=== PATIENT | female | born 1990 | race Caucasian/White ===

== ENCOUNTER 2016-08-07 14:06 | Emergency (ER) | payer OTHER ==
[2016-08-07] MEDS ORDERED: SODIUM CHLORIDE 0.9% 1,000 ML IV STA (14:33)
--- NOTE | 2016-08-07 14:40 | ED ---
Abdominal Pain HPI - General Chief Complaint: Abdominal Pain Stated Complaint: early /poss ectopic -sent by Time Seen by Provider: 08/07/16 14:28 Source: patient, RN notes reviewed Mode of arrival: ambulatory Limitations: no limitations - History of Present Illness Initial Comments: 25-year-old female presents emergency department with a chief complaint of left- sided abdominal pain. Patient states that she is she is willing to 0. Patient states that she's been having this left-sided abdominal pain for the last month or so. Patient states this is like an achy type pain that has been worsening. Patient states she went to his doctor's she was found to be and she was sent here. Patient denies any nausea vomiting. Patient does admit to a history of endometriosis as well as ovarian cysts. Patient states that she was concerned due to the pain and the so she thought that she should be seen. Patient states she has not had any vaginal bleeding with this. Patient denies any recent fever, chills, shortness of breath, chest pain, back pain, nausea vomiting, numbness or tingling, dysuria or hematuria, constipation or diarrhea, headaches or visual changes, or any other current symptoms. - Related Data Home Medications Medication Instructions Recorded Confirmed Ibuprofen [Motrin] 200 - 400 mg PO Q6HR PRN 08/07/16 08/07/16 Allergies Allergy/AdvReac Type Severity Reaction Status Date / Time No Known Allergies Allergy Verified 08/07/16 15:07 Review of Systems ROS Statement: Those systems with pertinent positive or pertinent negative responses have been documented in the HPI. ROS Other: All systems not noted in ROS Statement are negative. Past Medical History Past Medical History: No Reported History Additional Past Medical History / Comment(s): ovarian cysts, endometriosis History of Any Multi-Drug Resistant Organisms: None Reported Additional Past Surgical History / Comment(s): laparascopy Past Psychological History: ADD/ADHD, Anxiety, Bipolar Smoking Status: Current every day smoker Past Alcohol Use History: None Reported Past Drug Use History: None Reported General Exam - General Exam Comments Initial Comments: General: The patient is awake and alert, in no distress, and does not appear acutely ill. Eye: Pupils are equal, round and reactive to light, extra-ocular movements are intact; there is normal conjunctiva bilaterally. No signs of icterus. Ears, nose, mouth and throat: There are moist mucous membranes and no oral lesions. Neck: The neck is supple, there is no tenderness. Cardiovascular: There is a regular rate and rhythm. No murmur, rub or gallop is appreciated. Respiratory: Lungs are clear to auscultation, respirations are non-labored, breath sounds are equal. No wheezes, stridor, rales, or rhonchi. Gastrointestinal: Soft, non-distended, tenderness in left lower quadrant of the abdomen without masses or organomegaly noted. There is no rebound or guarding present. No CVA tenderness. Bowel sounds are unremarkable. Back: There is no tenderness to palpation in the midline. There is no obvious deformity. No rashes noted. Musculoskeletal: Normal ROM, no tenderness, There is no pedal edema. There is no calf tenderness or swelling. Sensation intact. Pulses equal bilaterally 2+. Neurological: CN II-XII intact, There are no obvious motor or sensory deficits. Coordination appears grossly intact. Speech is normal. Skin: Skin is warm and dry and no rashes or lesions are noted. Psychiatric: Cooperative, appropriate mood & affect, normal judgment. Limitations: no limitations Course Vital Signs 08/07/16 14:11 Temperature 98.8 F Pulse Rate 87 Respiratory 20 Rate Blood Pressure 148/65 O2 Sat by Pulse 100 Oximetry Medical Decision Making - Medical Decision Making 25 yo female presents emergency Department chief complaint of abdominal pain. This patient's ultrasound does appear to have a confirmed IUP. This time lab work is essentially to other abnormality. The patient will be discharged home. We discussed follow-up with [employer] and return parameters. Patient states she understood all questions were answered. She will be discharged home. - Lab Data Result diagrams: 08/07/16 15:05 08/07/16 15:05 Lab Results 08/07/16 08/07/16 08/07/16 Range/Units 15:05 15:05 15:05 WBC 14.3 H (3.8-10.6) k/uL RBC 4.55 (3.80-5.40) m/uL Hgb 13.9 (11.4-16.0) gm/dL Hct 40.0 (34.0-46.0) % MCV 87.8 (80.0-100.0) fL MCH 30.5 (25.0-35.0) pg MCHC 34.7 (31.0-37.0) g/dL RDW 12.3 (11.5-15.5) % Plt Count 315 (150-450) k/uL Neutrophils % 64 % Lymphocytes % 27 % Monocytes % 5 % Eosinophils % 1 % Basophils % 1 % Neutrophils # 9.1 H (1.3-7.7) k/uL Lymphocytes # 3.9 (1.0-4.8) k/uL Monocytes # 0.7 (0-1.0) k/uL Eosinophils # 0.2 (0-0.7) k/uL Basophils # 0.1 (0-0.2) k/uL Sodium 140 (137-145) mmol/L Potassium 3.9 (3.5-5.1) mmol/L Chloride 103 (98-107) mmol/L Carbon Dioxide 22 (22-30) mmol/L Anion Gap 15 mmol/L BUN 12 (7-17) mg/dL Creatinine 0.50 L (0.52-1.04) mg/dL Est GFR (MDRD) Af Amer >60 (>60 ml/min/1.73 sqM) Est GFR (MDRD) Non-Af >60 (>60 ml/min/1.73 sqM) Glucose 116 H (74-99) mg/dL Calcium 9.7 (8.4-10.2) mg/dL Total Bilirubin 0.6 (0.2-1.3) mg/dL AST 17 (14-36) U/L ALT 24 (9-52) U/L Alkaline Phosphatase 54 (38-126) U/L Total Protein 8.0 (6.3-8.2) g/dL Albumin 4.8 (3.5-5.0) g/dL Urine Color Urine Appearance (Clear) Urine pH (5.0-8.0) Ur Specific [place] (1.001-1.035) Urine Protein (Negative) Urine Glucose (UA) (Negative) Urine Ketones (Negative) Urine Blood (Negative) Urine Nitrate (Negative) Urine Bilirubin (Negative) Urine Urobilinogen (<2.0) mg/dL Ur Leukocyte Esterase (Negative) Urine WBC (0-5) /hpf Ur Squamous Epith Cells (0-4) /hpf Urine Mucus (None) /hpf Blood Type A Negative Blood Type Recheck No 02/20/17 Range/Units 15:05 WBC (3.8-10.6) k/uL RBC (3.80-5.40) m/uL Hgb (11.4-16.0) gm/dL Hct (34.0-46.0) % MCV (80.0-100.0) fL MCH (25.0-35.0) pg MCHC (31.0-37.0) g/dL RDW (11.5-15.5) % Plt Count (150-450) k/uL Neutrophils % % Lymphocytes % % Monocytes % % Eosinophils % % Basophils % % Neutrophils # (1.3-7.7) k/uL Lymphocytes # (1.0-4.8) k/uL Monocytes # (0-1.0) k/uL Eosinophils # (0-0.7) k/uL Basophils # (0-0.2) k/uL Sodium (137-145) mmol/L Potassium (3.5-5.1) mmol/L Chloride (98-107) mmol/L Carbon Dioxide (22-30) mmol/L Anion Gap mmol/L BUN (7-17) mg/dL Creatinine (0.52-1.04) mg/dL Est GFR (MDRD) Af Amer (>60 ml/min/1.73 sqM) Est GFR (MDRD) Non-Af (>60 ml/min/1.73 sqM) Glucose (74-99) mg/dL Calcium (8.4-10.2) mg/dL Total Bilirubin (0.2-1.3) mg/dL AST (14-36) U/L ALT (9-52) U/L Alkaline Phosphatase (38-126) U/L Total Protein (6.3-8.2) g/dL Albumin (3.5-5.0) g/dL Urine Color Yellow Urine Appearance Cloudy H (Clear) Urine pH 5.5 (5.0-8.0) Ur Specific [place] 1.019 (1.001-1.035) Urine Protein Negative (Negative) Urine Glucose (UA) Negative (Negative) Urine Ketones Negative (Negative) Urine Blood Negative (Negative) Urine Nitrate Negative (Negative) Urine Bilirubin Negative (Negative) Urine Urobilinogen <2.0 (<2.0) mg/dL Ur Leukocyte Esterase Moderate H (Negative) Urine WBC 14 H (0-5) /hpf Ur Squamous Epith Cells 17 H (0-4) /hpf Urine Mucus Rare H (None) /hpf Blood Type Blood Type Recheck - Radiology Data Radiology results: report reviewed, image reviewed Disposition Clinical Impression: Abdominal pain in Disposition: HOME SELF-CARE Condition: Stable Instructions: Abdominal Pain in (ED) Additional Instructions: Please use medication as discussed. Please follow up with family doctor if symptoms have not improved over the next two days. Please return to the emergency room if your symptoms increase or worsen or for any other concerns. Referrals: Hipolito Tran MD [Primary Care Provider] - 1-2 days Time of Disposition: 16:20
[2016-08-07 15:19] LABS: Basophils # (A) 0.1 k/uL (0-0.2); Basophils % (A) 1 %; CH 30.7; CHCM 35.1; Eosinophils # (A) 0.2 k/uL (0-0.7); Eosinophils % (A) 1 %; HDW 2.65; HGB 13.9 gm/dL (11.4-16.0); Luc # (Auto) 0.25; Luc % (Auto) 2; Lymphocytes # (A) 3.9 k/uL (1.0-4.8); Lymphocytes % (A) 27 %; MCH 30.5 pg (25.0-35.0); MCHC 34.7 g/dL (31.0-37.0); MCV 87.8 fL (80.0-100.0); Mean Platelet Volume 7.5; Monocytes # (A) 0.7 k/uL (0-1.0); Monocytes % (A) 5 %; Neutrophils # (A) 9.1 k/uL (1.3-7.7); Neutrophils % (A) 64 %; RBC 4.55 m/uL (3.80-5.40); RDW 12.3 % (11.5-15.5); WBC 14.3 k/uL (3.8-10.6); WBC (Perox) 14.69
[2016-08-07 15:23] LABS: Appearance,Urine Cloudy (Clear); Bilirubin,Urine Negative (Negative); Glucose,Urine (UA) Negative (Negative); Ketones,Urine Negative (Negative); Leukocyte Esterase,Urine Moderate (Negative); Mucus,Urine Rare /hpf; Nitrite,Urine Negative (Negative); PH, Urine 5.5 (5.0-8.0); Particle Count 14213; Protein,Urine Negative (Negative); Specific Gravity,Urine 1.019 (1.001-1.035); Squamous Epithelial Cell,Urine 17 /hpf (0-4); UA Billing (MACRO vs. MICRO) MICRO; Urobilinogen,Urine <2.0 mg/dL (<2.0); WBC,Urine 14 /hpf (0-5)
[2016-08-07 15:42] LABS: ALT 24 U/L (9-52); AST 17 U/L (14-36); Alkaline Phosphatase 54 U/L (38-126); Anion Gap 15 mmol/L; Blood Urea Nitrogen 12 mg/dL (7-17); Calcium 9.7 mg/dL (8.4-10.2); Carbon Dioxide 22 mmol/L (22-30); Chloride 103 mmol/L (98-107); Glucose 116 mg/dL (74-99); Non-African American GFR(MDRD) >60 (>60 ml/min/1.73 sqM); Potassium 3.9 mmol/L (3.5-5.1); Sodium 140 mmol/L (137-145); Total Bilirubin 0.6 mg/dL (0.2-1.3)
--- NOTE | 2016-08-07 16:06 | US ---
EXAMINATION TYPE: US OB <= 14 wk fetus DATE OF EXAM: 08/07/2016 3:41 PM COMPARISON: NONE CLINICAL HISTORY: 25-year-old female with left sided pelvic pain, rule out ectopic. Date of LMP: 06/18/16 Beta HcG (if available): not available EXAM PERFORMED: Transabdominal (TA) FINDINGS: EXAM MEASUREMENTS: GESTATIONAL AGE / DATING Physician Established: not yet established Dates by LMP: ( 7 weeks/1 days) EDC: 03/25/2017 Dates by First Scan: 1st scan today Dates by Current Scan: (7 weeks/1 days) EDC: 03/25/2017 MATERNAL ANATOMY Uterus: 8.8 x 4.6 x 7.2cm Right Ovary: 3.0 x 2.3 x 2.5cm Left Ovary: 3.1 x 1.8 x 1.7cm Post CDS / Adnexa: Within normal limits GESTATION / SURVEY CRL: 1.1cm ( 7 weeks/1 days) Yolk Sac (normal less than 6mm): 4mm Heart Rate: 146 bpm Rhythm: Normal IUP: Viable IUP TECHNOLOGIST IMPRESSION: Viable IUP, dates above. IMPRESSION: 1. Single live intrauterine with gestational age of 7 weeks 1 day by both LMP and crown-rum p length. 2. No adnexal abnormality or pelvic free fluid. 3. Complete survey recommended at 18-20 weeks.
[2016-08-07 16:29] LABS: HCG,Quantitative Serum 59665.4 mIU/mL
[2016-08-07 16:48] VITALS: BP 141/65; PULSE 100; RESP 16; TEMP 97.8
== END 2016-08-07 16:48 | disposition home or self-care (01) ==
LOC: EC 14:06
DX: O99.89 Other specified diseases and conditions complicating pregnancy, childbirth and the puerperium (principal); O99.331 Smoking (tobacco) complicating pregnancy, first trimester; R10.32 Left lower quadrant pain; F17.200 Nicotine dependence, unspecified, uncomplicated; Z3A.01 Less than 8 weeks gestation of pregnancy; Z87.42 Personal history of other diseases of the female genital tract
CPT/HCPCS: 36415; 76801; 80053; 81001; 84702; 85025; 86900; 86901; 87086; 96360; 99284

== ENCOUNTER 2017-02-21 19:09 | Outpatient (CLI) | payer OTHER ==
[2017-02-21 21:08] VITALS: BP 113/69; PULSE 81; RESP 16; TEMP 97.8
--- NOTE | 2017-04-08 21:42 | P.MSEPDOC ---
Presenting Problems - Arrival Data Date of Arrival on Unit: 02/21/17 Time of Arrival on Unit: 19:09 Mode of Transport: Ambulatory - Complaint OB-Reason for Admission/Chief Complaint: Rule Out PROM Comment: pt states had gush of clear odorless fluid 630 pm today Medical History - Information : 1 Para: 0 Term: 0 : 0 Abortions: Spontaneous or Elective: 0 Number of Living Children: 0 - Gestational Age Gestational Age by OSIEL (wks/days): 35 Weeks and 6 Days - History Complications: Hx. 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 continues with out patient rehab getting methadone 80 mg daily. positive for hep c and HPV per pt. sees dr Scott Review of Systems - Review of Systems Constitutional: No problems Breast: No problems ENT: No problems Cardiovascular: No problems Respiratory: No problems Gastrointestinal: No problems Genitourinary: No problems Musculoskeletal: No problems Neurological: No problems Skin: No problems Vital Signs - Temperature Temperature: 97.8 F Temperature Source: Oral - Pulse Right Pulse Rate: 81 Pulse Assessment Method: Automatic Cuff - Respirations Respiratory Rate: 16 - Blood Pressure Right Arm Blood Pressure: 113/69 Blood Pressure Mean: 83 Blood Pressure Source: Automatic Cuff Medical Screen Scoring (Pre) - Cervical Exam Dilation: Exam Deferred Effacement: Exam Deferred - Uterine Contractions Frequency: > 5 minutes apart = 1 - Maternal Vital Signs Maternal Temperature: N/A Maternal Blood Pressure: N/A Signs of Preeclampsia: N/A Maternal Respirations: N/A - Maternal Trauma Maternal Trauma: N/A - Assessment Baseline FHR: 145 Heart Rate - NICHD Category: Category I (Normal) = 0 NST: Reactive Position: N/A Station: N/A - Total Score Total Score (Pre): 1 - Level of Risk Level of Risk: Low (0-5) Physician Notification (Pre) - Physician Notified Physician Notified Date: 02/21/17 Physician Notified Time: 20:23 Physician/Practitioner Notifed:: Dr Dickerson Spoke With: Dr Dickerson New Order Received: Yes (Discharge home if NST reactive after acoustic stim) - Notification Comment Comment: Dr Dickerson notified of negative amnisure. No signs of ROM. pt wore dry underpants here, Hx IV heroin then methadone after 17 weeks.pt on methadone 80mg is seen bi weekly at Dr. Scott's. had reactive nst and ultrasound there today. pt says they always have to "buzz" the baby to get a reactive nst. fhr 145 no decels even with scattered contractions that pt does not feel. Acoustic stim at 2028 produced reactive nst by 2035 with heart rate status reassuring. pt to keep appt 02/[address] scott and appt 02/[address] Disposition - Disposition OB Disposition: Discharge to home, Written follow up instructions reviewed Discharge Date: 02/21/17 Discharge Time: 21:00 I agree with the RN Medical Screening Exam: Yes Risk & Benefit of care provided described in d/c instruction: Yes Diagnosis: FALSE LABOR, UNSPECIFIED
== END 2017-02-21 21:00 | disposition home or self-care (01) ==
LOC: FBPOP 19:09
PROVIDERS: ATTEND Obstetrics & Gynecology
DX: O47.9 False labor, unspecified (principal); Z3A.35 35 weeks gestation of pregnancy
CPT/HCPCS: 59025; 84112; 99213

== ENCOUNTER 2017-10-26 20:52 | Inpatient (IN) | payer OTHER ==
[2017-10-26] MEDS ORDERED: NALOXONE 0.4 MG/ML 1 ML VIAL IV STA ×2 (21:05→23:00)
[2017-10-26] MEDS ORDERED: SODIUM CHLORIDE 0.9% 1,000 ML IV STA (21:05)
--- NOTE | 2017-10-26 21:09 | ED ---
General Adult HPI - General Chief complaint: Overdose Stated complaint: overdose Time Seen by Provider: 10/26/17 20:59 Source: patient, EMS, RN notes reviewed Mode of arrival: EMS Limitations: altered mental status - History of Present Illness Initial comments: 27-year-old female presents with suspected overdose. EMS was called by the patient's family members patient was in the yard acting somewhat erratically. She had fallen and had some left shoulder pain. Patient states she took her methadone which is prescribed her this morning. She also admits to taking a "research chemical off the Internet". She denies alcohol consumption. There was 2 prescription medications Wellbutrin and trazodone that were approximately 50% empty which represents 15 pills of each that were filled 3 or 4 days ago. Patient denies taking these medications today. She states she took the research chemical approximately 3 hours prior to arrival. Patient's only complaint is shoulder pain. She is alert and oriented with some slurred speech at the time of my evaluation. After Narcan patient does admit to taking 4 Klonopin. - Related Data Home Medications Medication Instructions Recorded Confirmed Methadone [Dolophine] 80 mg PO 02/21/17 Allergies Allergy/AdvReac Type Severity Reaction Status Date / Time No Known Allergies Allergy Verified 10/26/17 21:52 Review of Systems ROS Statement: Those systems with pertinent positive or pertinent negative responses have been documented in the HPI. ROS Other: All systems not noted in ROS Statement are negative. Past Medical History Past Medical History: No Reported History Additional Past Medical History / Comment(s): ovarian cysts, endometriosis, iv drug use, prescription drug abuse History of Any Multi-Drug Resistant Organisms: None Reported Additional Past Surgical History / Comment(s): laparascopy Past Psychological History: ADD/ADHD, Anxiety, Bipolar Smoking Status: Current every day smoker Past Alcohol Use History: Occasional Past Drug Use History: IV Drug Use, Prescription Drug Abuse General Exam Limitations: altered mental status General appearance: alert, appears intoxicated Head exam: Present: atraumatic, normocephalic Eye exam: Present: normal appearance, PERRL, EOMI. Absent: nystagmus ENT exam: Present: normal exam Neck exam: Present: normal inspection. Absent: tenderness, meningismus Respiratory exam: Present: normal lung sounds bilaterally. Absent: respiratory distress, wheezes Cardiovascular Exam: Present: regular rate, normal rhythm GI/Abdominal exam: Present: soft. Absent: distended, tenderness Extremities exam: Absent: full ROM (Decreased range of motion left shoulder. Secondary to pain.) Neurological exam: Present: alert. Absent: motor sensory deficit Psychiatric exam: Present: depressed, flat affect Skin exam: Present: warm, intact, diaphoretic Course Vital Signs 10/26/17 10/26/17 10/26/17 21:02 21:09 21:12 Temperature 98.4 F Pulse Rate 90 80 86 Respiratory 16 16 16 Rate Blood Pressure 119/68 120/63 119/66 O2 Sat by Pulse 100 99 99 Oximetry 10/26/17 10/26/17 10/26/17 21:57 22:12 22:42 Temperature Pulse Rate 78 86 88 Respiratory 16 16 16 Rate Blood Pressure 129/87 138/78 144/84 O2 Sat by Pulse 100 99 95 Oximetry 10/26/17 22:57 Temperature Pulse Rate 84 Respiratory 16 Rate Blood Pressure 132/83 O2 Sat by Pulse 99 Oximetry - Reevaluation(s) Reevaluation #1: 10/26/17 23:51 Patient observed in the emergency department, she is protecting her airway, she will wake up with sternal rub. EKG Findings - EKG Comments: EKG Findings:: EKG obtained at 2202: Sinus rhythm with first-degree AV block, prolonged QT at 484, ventricular rate 92, KS interval 216, QRS duration 78. Repeat EKG obtained at 0001 sinus rhythm with first-degree AV block, rate of 100 , KS interval 214, QRS duration 78, QTC 466 Medical Decision Making - Medical Decision Making 27-year-old female presenting with overdose. Patient admits to taking methadone , Klonopin, and some research on the Internet. This substance is unavailable for review. Patient has normal vital signs and is able to give a limited history. Laboratory studies reveal elevated white blood cell count, uncertain of the significance at this time. Laboratory lites are within normal limits. Urine drug test is positive for benzodiazepines and methadone. Tylenol, alcohol, and aspirin levels are negative. Case is discussed with poison control, they recommend observation and repeat EKG. This is obtained. Patient did have some left shoulder pain x-rays obtained, shows a nondisplaced humeral neck fracture. Patient is placed in a sling she will follow-up with orthopedics as an outpatient. Given this trauma and the overdose, head CT is obtained which is negative for any acute intracranial process. Case discussed with Dr. Larose who will accept admission. - Lab Data Result diagrams: 10/26/17 21:13 10/26/17 21:13 Lab Results 10/26/17 10/26/17 10/26/17 Range/Units 21:13 21:13 21:13 WBC 14.6 H (3.8-10.6) k/uL RBC 4.75 (3.80-5.40) m/uL Hgb 14.0 (11.4-16.0) gm/dL Hct 40.0 (34.0-46.0) % MCV 84.2 (80.0-100.0) fL MCH 29.4 (25.0-35.0) pg MCHC 34.9 (31.0-37.0) g/dL RDW 13.1 (11.5-15.5) % Plt Count 214 (150-450) k/uL Neutrophils % 68 % Lymphocytes % 24 % Monocytes % 5 % Eosinophils % 1 % Basophils % 0 % Neutrophils # 10.0 H (1.3-7.7) k/uL Lymphocytes # 3.5 (1.0-4.8) k/uL Monocytes # 0.7 (0-1.0) k/uL Eosinophils # 0.2 (0-0.7) k/uL Basophils # 0.1 (0-0.2) k/uL PT 9.8 (9.0-12.0) sec INR 1.0 (<1.2) Sodium 142 (137-145) mmol/L Potassium 4.0 (3.5-5.1) mmol/L Chloride 104 (98-107) mmol/L Carbon Dioxide 26 (22-30) mmol/L Anion Gap 12 mmol/L BUN 13 (7-17) mg/dL Creatinine 0.60 (0.52-1.04) mg/dL Est GFR (CKD-EPI)AfAm >90 (>60 ml/min/1.73 sqM) Est GFR (CKD-EPI)NonAf >90 (>60 ml/min/1.73 sqM) Glucose 84 (74-99) mg/dL Plasma Lactic Acid Surinder (0.7-2.0) mmol/L Calcium 9.4 (8.4-10.2) mg/dL Phosphorus (2.5-4.5) mg/dL Magnesium (1.6-2.3) mg/dL Total Bilirubin 0.4 (0.2-1.3) mg/dL AST 74 H (14-36) U/L ALT 131 H (9-52) U/L Alkaline Phosphatase 79 (38-126) U/L Creatine Kinase (30-135) U/L Total Protein 7.6 (6.3-8.2) g/dL Albumin 4.5 (3.5-5.0) g/dL Lipase 47 (23-300) U/L Urine Color Urine Appearance (Clear) Urine pH (5.0-8.0) Ur Specific [place] (1.001-1.035) Urine Protein (Negative) Urine Glucose (UA) (Negative) Urine Ketones (Negative) Urine Blood (Negative) Urine Nitrite (Negative) Urine Bilirubin (Negative) Urine Urobilinogen (<2.0) mg/dL Ur Leukocyte Esterase (Negative) Urine HCG, Qual (Not Detectd) Salicylates <1.0 mg/dL Urine Opiates Screen (NotDetected) Ur Oxycodone Screen (NotDetected) Urine Methadone Screen (NotDetected) Ur Propoxyphene Screen (NotDetected) Acetaminophen <10.0 ug/mL Ur Barbiturates Screen (NotDetected) U Tricyclic Antidepress (NotDetected) Ur Phencyclidine Scrn (NotDetected) Ur Amphetamines Screen (NotDetected) U Methamphetamines Scrn (NotDetected) U Benzodiazepines Scrn (NotDetected) Urine Cocaine Screen (NotDetected) U Marijuana (THC) Screen (NotDetected) Serum Alcohol <10 mg/dL 10/26/17 10/26/17 10/26/17 Range/Units 21:13 21:13 21:40 WBC (3.8-10.6) k/uL RBC (3.80-5.40) m/uL Hgb (11.4-16.0) gm/dL Hct (34.0-46.0) % MCV (80.0-100.0) fL MCH (25.0-35.0) pg MCHC (31.0-37.0) g/dL RDW (11.5-15.5) % Plt Count (150-450) k/uL Neutrophils % % Lymphocytes % % Monocytes % % Eosinophils % % Basophils % % Neutrophils # (1.3-7.7) k/uL Lymphocytes # (1.0-4.8) k/uL Monocytes # (0-1.0) k/uL Eosinophils # (0-0.7) k/uL Basophils # (0-0.2) k/uL PT (9.0-12.0) sec INR (<1.2) Sodium (137-145) mmol/L Potassium (3.5-5.1) mmol/L Chloride (98-107) mmol/L Carbon Dioxide (22-30) mmol/L Anion Gap mmol/L BUN (7-17) mg/dL Creatinine (0.52-1.04) mg/dL Est GFR (CKD-EPI)AfAm (>60 ml/min/1.73 sqM) Est GFR (CKD-EPI)NonAf (>60 ml/min/1.73 sqM) Glucose (74-99) mg/dL Plasma Lactic Acid Surinder (0.7-2.0) mmol/L Calcium (8.4-10.2) mg/dL Phosphorus 3.2 (2.5-4.5) mg/dL Magnesium 2.1 (1.6-2.3) mg/dL Total Bilirubin (0.2-1.3) mg/dL AST (14-36) U/L ALT (9-52) U/L Alkaline Phosphatase (38-126) U/L Creatine Kinase 97 (30-135) U/L Total Protein (6.3-8.2) g/dL Albumin (3.5-5.0) g/dL Lipase (23-300) U/L Urine Color Yellow Urine Appearance Clear (Clear) Urine pH 5.5 (5.0-8.0) Ur Specific [place] 1.012 (1.001-1.035) Urine Protein Negative (Negative) Urine Glucose (UA) Negative (Negative) Urine Ketones Negative (Negative) Urine Blood Negative (Negative) Urine Nitrite Negative (Negative) Urine Bilirubin Negative (Negative) Urine Urobilinogen <2.0 (<2.0) mg/dL Ur Leukocyte Esterase Negative (Negative) Urine HCG, Qual (Not Detectd) Salicylates mg/dL Urine Opiates Screen Not Detected (NotDetected) Ur Oxycodone Screen Not Detected (NotDetected) Urine Methadone Screen Detected H (NotDetected) Ur Propoxyphene Screen Not Detected (NotDetected) Acetaminophen ug/mL Ur Barbiturates Screen Not Detected (NotDetected) U Tricyclic Antidepress Not Detected (NotDetected) Ur Phencyclidine Scrn Not Detected (NotDetected) Ur Amphetamines Screen Not Detected (NotDetected) U Methamphetamines Scrn Not Detected (NotDetected) U Benzodiazepines Scrn Detected H (NotDetected) Urine Cocaine Screen Not Detected (NotDetected) U Marijuana (THC) Screen Not Detected (NotDetected) Serum Alcohol mg/dL 10/26/17 10/26/17 Range/Units 21:40 21:45 WBC (3.8-10.6) k/uL RBC (3.80-5.40) m/uL Hgb (11.4-16.0) gm/dL Hct (34.0-46.0) % MCV (80.0-100.0) fL MCH (25.0-35.0) pg MCHC (31.0-37.0) g/dL RDW (11.5-15.5) % Plt Count (150-450) k/uL Neutrophils % % Lymphocytes % % Monocytes % % Eosinophils % % Basophils % % Neutrophils # (1.3-7.7) k/uL Lymphocytes # (1.0-4.8) k/uL Monocytes # (0-1.0) k/uL Eosinophils # (0-0.7) k/uL Basophils # (0-0.2) k/uL PT (9.0-12.0) sec INR (<1.2) Sodium (137-145) mmol/L Potassium (3.5-5.1) mmol/L Chloride (98-107) mmol/L Carbon Dioxide (22-30) mmol/L Anion Gap mmol/L BUN (7-17) mg/dL Creatinine (0.52-1.04) mg/dL Est GFR (CKD-EPI)AfAm (>60 ml/min/1.73 sqM) Est GFR (CKD-EPI)NonAf (>60 ml/min/1.73 sqM) Glucose (74-99) mg/dL Plasma Lactic Acid Surinder 1.2 (0.7-2.0) mmol/L Calcium (8.4-10.2) mg/dL Phosphorus (2.5-4.5) mg/dL Magnesium (1.6-2.3) mg/dL Total Bilirubin (0.2-1.3) mg/dL AST (14-36) U/L ALT (9-52) U/L Alkaline Phosphatase (38-126) U/L Creatine Kinase (30-135) U/L Total Protein (6.3-8.2) g/dL Albumin (3.5-5.0) g/dL Lipase (23-300) U/L Urine Color Urine Appearance (Clear) Urine pH (5.0-8.0) Ur Specific [place] (1.001-1.035) Urine Protein (Negative) Urine Glucose (UA) (Negative) Urine Ketones (Negative) Urine Blood (Negative) Urine Nitrite (Negative) Urine Bilirubin (Negative) Urine Urobilinogen (<2.0) mg/dL Ur Leukocyte Esterase (Negative) Urine HCG, Qual Not Detected (Not Detectd) Salicylates mg/dL Urine Opiates Screen (NotDetected) Ur Oxycodone Screen (NotDetected) Urine Methadone Screen (NotDetected) Ur Propoxyphene Screen (NotDetected) Acetaminophen ug/mL Ur Barbiturates Screen (NotDetected) U Tricyclic Antidepress (NotDetected) Ur Phencyclidine Scrn (NotDetected) Ur Amphetamines Screen (NotDetected) U Methamphetamines Scrn (NotDetected) U Benzodiazepines Scrn (NotDetected) Urine Cocaine Screen (NotDetected) U Marijuana (THC) Screen (NotDetected) Serum Alcohol mg/dL Disposition Clinical Impression: Drug overdose, Suicide attempt by multiple drug overdose, Poisoning by opiate or related narcotic, Fracture, humerus, neck Disposition: ADMITTED IP TO THIS [facility] Condition: Stable Is patient prescribed a controlled substance at d/c from ED?: No Referrals: Hipolito Tran MD [STAFF PHYSICIAN] - 1-2 days Decision to Admit Reason: Admit from EC Decision Date: 10/26/17 Decision Time: 23:56
[2017-10-26 21:21] LABS: Basophils # (A) 0.1 k/uL (0-0.2); Basophils % (A) 0 %; Eosinophils # (A) 0.2 k/uL (0-0.7); Eosinophils % (A) 1 %; Lymphocytes # (A) 3.5 k/uL (1.0-4.8); Lymphocytes % (A) 24 %; MCH 29.4 pg (25.0-35.0); MCHC 34.9 g/dL (31.0-37.0); MCV 84.2 fL (80.0-100.0); Mean Platelet Volume 7.2; Monocytes # (A) 0.7 k/uL (0-1.0); Monocytes % (A) 5 %; Neutrophils % (A) 68 %; Platelet Count 214 k/uL (150-450); RBC 4.75 m/uL (3.80-5.40); RDW 13.1 % (11.5-15.5); WBC 14.6 k/uL (3.8-10.6)
[2017-10-26 21:32] LABS: ALT 131 U/L (9-52); AST 74 U/L (14-36); Acetaminophen <10.0 ug/mL; Albumin 4.5 g/dL (3.5-5.0); Alcohol <10 mg/dL; Alkaline Phosphatase 79 U/L (38-126); Anion Gap 12 mmol/L; Blood Urea Nitrogen 13 mg/dL (7-17); Calcium 9.4 mg/dL (8.4-10.2); Carbon Dioxide 26 mmol/L (22-30); Chloride 104 mmol/L (98-107); Glucose 84 mg/dL (74-99); Lipase 47 U/L (23-300); Salicylate <1.0 mg/dL; Sodium 142 mmol/L (137-145); Total Bilirubin 0.4 mg/dL (0.2-1.3); Total Protein 7.6 g/dL (6.3-8.2)
[2017-10-26 21:34] LABS: Prothrombin Time 9.8 sec (9.0-12.0)
[2017-10-26 21:48] LABS: Appearance,Urine Clear (Clear); Bilirubin,Urine Negative (Negative); Blood,Urine Negative (Negative); Color,Urine Yellow; Glucose,Urine (UA) Negative (Negative); Ketones,Urine Negative (Negative); Leukocyte Esterase,Urine Negative (Negative); Nitrite,Urine Negative (Negative); PH, Urine 5.5 (5.0-8.0); Protein,Urine Negative (Negative); Specific Gravity,Urine 1.012 (1.001-1.035); Urobilinogen,Urine <2.0 mg/dL (<2.0)
[2017-10-26 21:59] LABS: Amphetamine Screen,Urine Not Detected (NotDetected); Barbiturate Screen,Urine Not Detected (NotDetected); Benzodiazepines Screen,Urine Detected (NotDetected); Cocaine Screen,Urine Not Detected (NotDetected); Methadone Screen, Urine Detected (NotDetected); Opiate Screen,Urine Not Detected (NotDetected); Oxycodone Screen, Urine Not Detected (NotDetected); Phencyclidine Screen,Urine Not Detected (NotDetected); Tricyclic Antidepressant,Urine Not Detected (NotDetected); Urn Cannabinoid Scrn Not Detected (NotDetected)
--- NOTE | 2017-10-26 22:37 | XR ---
EXAMINATION TYPE: XR shoulder complete LT DATE OF EXAM: 10/26/2017 COMPARISON: NONE HISTORY: Shoulder pain TECHNIQUE: 3 views FINDINGS: There is a slightly impacted transverse fracture of the humeral neck. There is no dislocati on. Scapula appears intact. IMPRESSION: Humeral neck fracture with slight impaction.
--- NOTE | 2017-10-26 22:44 | CT ---
EXAMINATION TYPE: CT brain carissa drew con DATE OF EXAM: 10/26/2017 COMPARISON: NONE HISTORY: Altered mental status. Alleged overdose. CT DLP: 1380.2 mGycm Automated exposure control for dose reduction was used. TECHNIQUE: CT scan of the head and cervical spine are performed without contrast. FINDINGS: Ventricles and sulci appear normal. There is no mass effect nor midline shift. There is n o sign of intracranial hemorrhage. The calvarium is intact. The cervical vertebra have normal alignment. Posterior elements are intact. Facet joints are intact. The skull base is intact. There is no evidence of a fracture. IMPRESSION: Negative CT scan of the brain. Negative CT scan of the cervical spine. No fracture.
[2017-10-26 22:50] LABS: Phosphorus 3.2 mg/dL (2.5-4.5)
[2017-10-26] MEDS: SODIUM CHLORIDE 0.9% 1,000 ML IV SCH (23:05)
[2017-10-26] MEDS ORDERED: KETOROLAC 30 MG/ML 1 ML VIAL IVP STA (23:24)
[2017-10-26] MEDS ORDERED: NALOXONE 0.4 MG/ML 1 ML VIAL IV PRN (23:47)
[2017-10-27] MEDS ORDERED: NALOXONE 0.4 MG/ML 1 ML VIAL IV PRN (00:55)
[2017-10-27] MEDS ORDERED: ACETAMINOPHEN TAB 325 MG TAB PO PRN (00:55)
--- NOTE | 2017-10-27 01:06 | P.HPIM ---
History of Present Illness H&P Date: 10/26/17 Chief Complaint: decreased responsiveness Patient is a 27-year-old female for past medical history of hepatitis C, HPV, ovarian cysts, endometriosis, and prior IV drug use currently on methadone therapy who was brought in via EMS to the ER due to decreased responsiveness. EMS believe that she had overdosed possible Wellbutrin, trazodone, methadone, and Klonopin. In the ER she underwent an extensive evaluation. She is complaining of left shoulder pain and was found to have a left humeral fracture. Laboratory analysis showed a slightly elevated white blood cell count at 14. Her UDS was positive for methadone and benzos. Her tylenol, salicylate, and alcohol levels were normal. She was given 2 doses of narcan and was arousable to sternal rub. Poison control was contacted who recommended EKG monitoring. Her UA was negative. Her liver enzymes were slightly elevated. She will be placed in a sling and admitted to the selective care unit. Patient seen and examined at bedside. She complains of left shoulder pain. She is difficult to arouse but awakes to sternal rub. She states that she was doing well on her methadone therapy but then her mother has stage IV lung cancer and she was overwhelmed and couldn't handle it any more and combined her methadone with a [place] version of Klonopin to help deal with it. She denies and chest pain, SOB, nausea, or vomiting. She has not been sick at all recently. She is not sure where her 7 month old is currently, but states that she was with her earlier today. After much effort on the nurses process we were able to locate the boyfriend and the baby was with him. Review of Systems Unable to obtain due to patients mentation and frequently falls asleep Past Medical History Additional Past Medical History / Comment(s): ovarian cysts, endometriosis, iv drug use, prescription drug abuse, Hep C, HPV History of Any Multi-Drug Resistant Organisms: None Reported Past Surgical History: No Surgical Hx Reported Additional Past Surgical History / Comment(s): laparascopy Past Psychological History: ADD/ADHD, Anxiety, Bipolar Smoking Status: Current every day smoker Past Alcohol Use History: Occasional Past Drug Use History: IV Drug Use, Prescription Drug Abuse Additional Drug Use History / Comment(s): currently on methadone denies any IVDA currently - Past Family History Mother Additional Family Medical History / Comment(s): Stage IV lung cancer Medications and Allergies Home Medications Medication Instructions Recorded Confirmed Type Methadone [Dolophine] 80 mg PO 02/21/17 History Allergies Allergy/AdvReac Type Severity Reaction Status Date / Time No Known Allergies Allergy Verified 10/26/17 21:52 Physical Exam Osteopathic Statement: *. No significant issues noted on an osteopathic structural exam other than those noted in the History and Physical/Consult. Vitals: Vital Signs Temp Pulse Resp BP Pulse Ox 10/26/17 22:57 84 16 132/83 99 10/26/17 22:42 88 16 144/84 95 10/26/17 22:12 86 16 138/78 99 10/26/17 21:57 78 16 129/87 100 10/26/17 21:12 86 16 119/66 99 10/26/17 21:09 80 16 120/63 99 10/26/17 21:02 98.4 F 90 16 119/68 100 Intake and Output 10/26/17 10/26/17 10/27/17 14:59 22:59 06:59 Other: Weight 99.79 kg General: +toxic appearing, mild distress, appears at stated age, Obese Derm: no unusual rashes/lesions no unusual ecchymoses, warm, dry Head: atraumatic, normocephalic, symmetric Eyes: EOMI, no lid lag, anicteric sclera, pupils equal round reactive to light ENT: Nose and ears atraumatic, no thrush Neck: No thyromegaly, no cervical lymphadenopathy, trachea midline, supple Mouth: no lip lesion, mucus membranes moist Cardiovascular: S1S2 tachy, no murmur, positive posterior tibial pulse bilateral , trace edema left arm, capillary refill less than 2 seconds Lungs: decreased bs bilateral, no rhonchi, no rales , no accessory muscle use Abdominal: soft, nontender to palpation, no guarding, no appreciable organomegaly, normal bowel sounds Ext: no gross muscle atrophy, muscle strength grossly intact all 4 extremities grossly, pain to palpation of left arm, no contractures, Neuro: CN II-XI grossly intact, light touch intact all 4 extremities, finger to nose within normal limits on rihgt , Psych: Alert, oriented, appropriate affect Results CBC & Chem 7: 10/26/17 21:13 10/26/17 21:13 Labs: Abnormal Lab Results - Last 24 Hours (Table) 10/26/17 10/26/17 10/26/17 Range/Units 21:13 21:13 21:40 WBC 14.6 H (3.8-10.6) k/uL Neutrophils # 10.0 H (1.3-7.7) k/uL AST 74 H (14-36) U/L ALT 131 H (9-52) U/L Urine Methadone Screen Detected H (NotDetected) U Benzodiazepines Scrn Detected H (NotDetected) Comments: Left arm x-ray, impacted left humeral neck fracture, EKF reivew by me normal axis, normal ileus Thrombosis Risk Factor Assmnt - DVT/VTE Prophylaxis DVT/VTE Prophylaxis: Mechanical Prophylaxis ordered Assessment and Plan Assessment: Intentional vs unintentional overdose, possible suicide attempt. - neurochecks - 1:1 sitter - no additional methadone - telemetry - psych consult Left humeral fracture - pain control with toradol - sling - consult ortho Transaminitis - likely reactive - has a history of hep C - repeat AM and determine work-up needed. Leukocytosis, likely reactive - UA negative - repeat in AM and CXR if still elevated Tobacco abuse - cessation - nicotine replacement Surrogate decision-maker: Mother CODE STATUS:Full by default DVT prophylaxis: SCDs Discussed with: Patient, ED physician, ED nursing Anticipated discharge: 24-[address]: psych vs home A total of 35 minutes was spent on the care of this complex patient more than 50 % of the time was spent in counseling and care coordination.
[2017-10-27 01:17] VITALS: BMI 36.6
[2017-10-27] MEDS: KETOROLAC 30 MG/ML 1 ML VIAL IVP SCH ×3 (01:21→12:31)
[2017-10-27 06:31] LABS: HCT 34.6 % (34.0-46.0); HGB 12.4 gm/dL (11.4-16.0); MCH 29.7 pg (25.0-35.0); MCHC 35.8 g/dL (31.0-37.0); MCV 82.9 fL (80.0-100.0); Mean Platelet Volume 6.9; Platelet Count 210 k/uL (150-450); RBC 4.17 m/uL (3.80-5.40); RDW 13.1 % (11.5-15.5); WBC 12.7 k/uL (3.8-10.6)
[2017-10-27] MEDS: PANTOPRAZOLE 40 MG TABLET PO SCH (06:33)
[2017-10-27 06:54] LABS: ALT 108 U/L (9-52); AST 55 U/L (14-36); Albumin 3.6 g/dL (3.5-5.0); Alkaline Phosphatase 69 U/L (38-126); Anion Gap 10 mmol/L; Blood Urea Nitrogen 11 mg/dL (7-17); Calcium 8.5 mg/dL (8.4-10.2); Carbon Dioxide 26 mmol/L (22-30); Chloride 106 mmol/L (98-107); Glucose 74 mg/dL (74-99); Sodium 142 mmol/L (137-145); Total Bilirubin 0.7 mg/dL (0.2-1.3); Total Protein 6.3 g/dL (6.3-8.2)
[2017-10-27] MEDS: NICOTINE 21MG/24HR PATCH TRANSDERM SCH (09:10)
[2017-10-27] MEDS: SODIUM CHLORIDE 0.9% 1,000 ML IV SCH ×2 (12:33→23:31)
--- NOTE | 2017-10-27 12:44 | P.CNOR ---
History of Present Illness - [facility] Consult date: 10/27/17 Consult reason: fracture (Left proximal humerus fracture) History of present illness: This is a 27-year-old female who apparently overdosed yesterday with a suicide attempt. She apparently fell at the time. She does not recall the fall. She complains of left upper extremity pain. She is admitted to [facility] for observation. We're consulted for orthopedic evaluation of her left proximal humerus fracture. Past Medical History Past Medical History: No Reported History Additional Past Medical History / Comment(s): ovarian cysts, endometriosis, iv drug use, prescription drug abuse, Hep C, HPV History of Any Multi-Drug Resistant Organisms: None Reported Past Surgical History: No Surgical Hx Reported Additional Past Surgical History / Comment(s): laparascopy Past Psychological History: ADD/ADHD, Anxiety, Bipolar Smoking Status: Current every day smoker Past Alcohol Use History: Occasional Past Drug Use History: IV Drug Use, Prescription Drug Abuse Additional Drug Use History / Comment(s): currently on methadone denies any IVDA currently - Past Family History Mother Additional Family Medical History / Comment(s): Stage IV lung cancer Medications and Allergies Home Medications Medication Instructions Recorded Confirmed Type Methadone [Dolophine] 80 mg PO DAILY 02/21/17 10/27/17 History busPIRone HCl [Buspar] 10 mg PO TID 10/27/17 10/27/17 History traZODone HCL 50 mg PO HS 10/27/17 10/27/17 History Allergies Allergy/AdvReac Type Severity Reaction Status Date / Time No Known Allergies Allergy Verified 10/26/17 21:52 Physical Examination This is a 27-year-old female in no acute distress. She is alert and oriented at this time. Exam of the head neck reveal no obvious deformity. She has full cervical spine motion without difficulty or pain. There is no pain with palpation about the cervical spine or paraspinal musculature. Exam of the upper extremities reveals a sling in place on the left. There is no erythema or ecchymosis. There is [id number] swelling about the shoulder. Neurovascular status to the upper extremity is intact. She has full finger and wrist motion on the left without difficulty. She has full thumb extension against resistance. There is pain with motion to the shoulder. There is pain with palpation about the shoulder. The remainder of her musculoskeletal exam is unremarkable. Results X-rays of the left shoulder reveal a minimally displaced humeral neck fracture in satisfactory position and alignment. - Labs Labs: Abnormal Lab Results - Last 24 Hours (Table) 10/26/17 10/26/17 10/26/17 Range/Units 21:13 21:13 21:40 WBC 14.6 H (3.8-10.6) k/uL Neutrophils # 10.0 H (1.3-7.7) k/uL AST 74 H (14-36) U/L ALT 131 H (9-52) U/L Urine Methadone Screen Detected H (NotDetected) U Benzodiazepines Scrn Detected H (NotDetected) 10/27/17 10/27/17 Range/Units 05:46 05:46 WBC 12.7 H (3.8-10.6) k/uL Neutrophils # (1.3-7.7) k/uL AST 55 H (14-36) U/L ALT 108 H (9-52) U/L Urine Methadone Screen (NotDetected) U Benzodiazepines Scrn (NotDetected) H & H 10/26/17 10/27/17 Range/Units 21:13 05:46 Hgb 14.0 12.4 (11.4-16.0) gm/dL Hct 40.0 34.6 (34.0-46.0) % Coagulation 10/26/17 Range/Units 21:13 INR 1.0 (<1.2) Result Diagrams: 10/27/17 05:46 10/27/17 05:46 Assessment and Plan (1) Drug overdose Current Visit: Yes Status: Acute Code(s): T50.901A - POISONING BY UNSP DRUG/ MEDS/BIOL SUBST, ACCIDENTAL, INIT SNOMED Code(s): 01730145 (2) Fracture, humerus, neck Current Visit: Yes Status: Acute Code(s): S42.213A - UNSP DISP FX OF SURGICAL NECK OF UNSP HUMERUS, INIT SNOMED Code(s): 069928436 (3) Suicide attempt by multiple drug overdose Current Visit: Yes Status: Acute Code(s): T50.902A - POISONING BY UNSP DRUG/ MEDS/BIOL SUBST, SELF-HARM, INIT SNOMED Code(s): 51541772 Plan: The clinical and x-ray findings are discussed with the patient. With regard to the fracture, there is no surgical indication at this time. She is to be treated in a sling. It is recommended that she maintain elevated at least 45 when sleeping for comfort. With her recent history of overdose and history of opioid abuse I will defer pain management to internal medicine. Recommend more Tylenol based products if possible. I have recommended that she quit smoking to improve her bone healing potential. She is to follow-up in our office in one week for re-x-ray and evaluation.
[2017-10-27] MEDS ORDERED: traMADol 50 MG TAB PO SCH (15:30)
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
[2017-10-27] MEDS: traMADol 50 MG TAB PO SCH ×2 (16:38→21:27)
[2017-10-27] MEDS: ACETAMINOPHEN TAB 325 MG TAB PO SCH ×2 (16:40→21:27)
[2017-10-27] MEDS ORDERED: ACETAMINOPHEN TAB 325 MG TAB PO SCH (18:00)
[2017-10-27] MEDS ORDERED: METHADONE 10 MG TAB PO SCH (19:00)
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
[2017-10-27] MEDS ORDERED: lamoTRIgine 25 MG TAB PO SCH (21:00)
[2017-10-28] MEDS: ACETAMINOPHEN TAB 325 MG TAB PO SCH ×2 (03:50→10:04)
[2017-10-28] MEDS: traMADol 50 MG TAB PO SCH ×2 (03:50→10:05)
[2017-10-28] MEDS: PANTOPRAZOLE 40 MG TABLET PO SCH (06:25)
[2017-10-28] MEDS ORDERED: METHADONE 10 MG TAB PO ONE (07:38)
[2017-10-28 08:04] LABS: HCT 37.6 % (34.0-46.0); MCH 29.4 pg (25.0-35.0); MCHC 34.7 g/dL (31.0-37.0); MCV 84.8 fL (80.0-100.0); Mean Platelet Volume 6.9; Platelet Count 228 k/uL (150-450); RBC 4.44 m/uL (3.80-5.40); RDW 13.2 % (11.5-15.5); WBC 12.3 k/uL (3.8-10.6)
[2017-10-28 08:12] LABS: Anion Gap 13 mmol/L; Blood Urea Nitrogen 6 mg/dL (7-17); Calcium 8.9 mg/dL (8.4-10.2); Carbon Dioxide 23 mmol/L (22-30); Chloride 106 mmol/L (98-107); Glucose 111 mg/dL (74-99); Sodium 142 mmol/L (137-145)
[2017-10-28] MEDS: NICOTINE 21MG/24HR PATCH TRANSDERM SCH (08:30)
--- NOTE | 2017-10-28 09:54 | P.PN ---
Subjective Progress Note Date: 10/28/17 Principal diagnosis: Humeral neck fracture left shoulder. Suicide attempt. Drug overdose. This is a 27-year-old female whom we're following regarding her left humeral neck fracture. She is currently in a sling. She has no new complaints or concerns today. She states that her pain is improved. Objective - Vital Signs Vital signs: Vital Signs Temp 98.5 F 10/28/17 08:20 Pulse 99 10/28/17 08:20 Resp 18 10/28/17 08:20 BP 129/80 10/28/17 08:20 Pulse Ox 96 10/28/17 08:20 Intake & Output 10/27/17 10/28/17 10/28/17 18:59 06:59 18:59 Intake Total 675 1200 Balance 675 1200 Weight 91.4 kg Intake: IV 675 1200 Sodium Chloride 0.9% 1, 675 1200 000 ml @ 75 mls/hr IV . [id number] [facility] Rx#:[id number] Other: Voiding Method Toilet Toilet - Exam This is a pleasant 27-year-old female in no acute distress. She is alert and oriented 3. Exam of the upper extremities reveals a sling in place. She has full wrist and finger motion without difficulty or pain. She continues to have pain with palpation about the left shoulder. Neurovascular status to the upper extremity is intact. - Labs CBC & Chem 7: 10/28/17 07:44 10/28/17 07:44 Labs: Abnormal Lab Results - Last 24 Hours (Table) 10/28/17 10/28/17 Range/Units 07:44 07:44 WBC 12.3 H (3.8-10.6) k/uL BUN 6 L (7-17) mg/dL Glucose 111 H (74-99) mg/dL Assessment and Plan (1) Drug overdose Current Visit: Yes Status: Acute Code(s): T50.901A - POISONING BY UNSP DRUG/ MEDS/BIOL SUBST, ACCIDENTAL, INIT SNOMED Code(s): 23157729 (2) Fracture, humerus, neck Current Visit: Yes Status: Acute Code(s): S42.213A - UNSP DISP FX OF SURGICAL NECK OF UNSP HUMERUS, INIT SNOMED Code(s): 762518075 (3) Suicide attempt by multiple drug overdose Current Visit: Yes Status: Acute Code(s): T50.902A - POISONING BY UNSP DRUG/ MEDS/BIOL SUBST, SELF-HARM, INIT SNOMED Code(s): 82038250 Plan: The clinical and x-ray findings are discussed with the patient. With regard to the fracture, there is no surgical indication at this time. She is to be treated in a sling. It is recommended that she maintain elevated at least 45 when sleeping for comfort. With her recent history of overdose and history of opioid abuse I will defer pain management to internal medicine. Recommend more Tylenol based products if possible. I have recommended that she quit smoking to improve her bone healing potential. She is to follow-up in our office in one week for re-x-ray and evaluation.
[2017-10-28 12:38] LABS: ALT 107 U/L (9-52); AST 55 U/L (14-36)
--- NOTE | 2017-10-28 13:36 | P.DS ---
Providers Date of admission: 10/27/17 11:16 Expected date of discharge: 10/28/17 Attending physician: Josefina Larose DO Consults: 10/26/17 23:50 Consult Physician Routine Consulting Provider: Radha Mckay Consult Reason/Comments: Concern for suicide attempt, benzodiazepine and methadone overdose Do you want consulting provider notified?: Yes, Notify in am 10/27/17 01:01 Consult Physician Routine Consulting Provider: Landon Lima Consult Reason/Comments: left humeral fracture Do you want consulting provider notified?: Yes Primary care physician: Stated None - Discharge Diagnosis(es) (1) Drug overdose Current Visit: Yes Status: Acute Onset Date: ~10/26/17 (2) Fracture, humerus, neck Current Visit: Yes Status: Acute Onset Date: ~10/26/17 (3) Poisoning by opiate or related narcotic Current Visit: Yes Status: Acute Onset Date: ~10/26/17 (4) Suicide attempt by multiple drug overdose Current Visit: Yes Status: Acute Onset Date: ~10/26/17 (5) Opioid withdrawal Current Visit: No Status: Acute Hospital Course: Patient was admitted to the hospital for management of her narcotic overdose and she was followed closely while in the hospital. Patient was referred to psychiatry for evaluation of her depression and anxiety with possible suicidal attempt. Patient was also referred to orthopedics who recommended left humeral neck fracture stabilization with sling and pain control per primary care. Patient pain was controlled with Tylenol and Ultram combination and continuation of her methadone. Patient was noted to have elevated liver enzymes at the time of admission which is was noted downtrending along with elevated WBC which was slightly improved. There is no evidence of infection. Patient was seen by the psychiatry and recommended if medically stable and can be discharged and transferred to psych unit for management of her psychiatric condition. Patient is medically stable her pain is better controlled with current management and she will be discharged and transferred to psychiatry inpatient unit for management of her psychotic condition today. Patient Condition at Discharge: Good Plan - Discharge Summary Discharge Rx Participant: No New Discharge Prescriptions: New Acetaminophen Tab [Tylenol] 325 mg PO Q8HR #90 tab lamoTRIgine [LaMICtal] 25 mg PO HS #30 tab Nicotine 21Mg/24Hr Patch [Habitrol] See Taper TRANSDERM DAILY 7 Days #7 patch MDD one patch Pantoprazole [Protonix] 40 mg PO AC-BRKFST #30 tablet. traMADol HCl [Ultram] 50 mg PO Q8H PRN #9 tab PRN Reason: Pain Continue Methadone [Dolophine] 95 mg PO DAILY traZODone HCL 50 mg PO HS busPIRone HCl [Buspar] 10 mg PO TID Discharge Medication List Methadone [Dolophine] 95 mg PO DAILY 02/21/17 [History] busPIRone HCl [Buspar] 10 mg PO TID 10/27/17 [History] traZODone HCL 50 mg PO HS 10/27/17 [History] Acetaminophen Tab [Tylenol] 325 mg PO Q8HR #90 tab 10/28/17 [Rx] Nicotine 21Mg/24Hr Patch [Habitrol] See Taper TRANSDERM DAILY 7 Days #7 patch MDD one patch 10/28/17 [Rx] Pantoprazole [Protonix] 40 mg PO AC-BRKFST #30 tablet. 10/28/17 [Rx] lamoTRIgine [LaMICtal] 25 mg PO HS #30 tab 10/28/17 [Rx] traMADol HCl [Ultram] 50 mg PO Q8H PRN #9 tab 10/28/17 [Rx] Follow up Appointment(s)/Referral(s): Hipolito Tran MD [STAFF PHYSICIAN] - 1-2 days Landon Lima DO [Doctor of Osteopathic Medicine] - 1 Week Activity/Diet/Wound Care/Special Instructions: Maintain sling. Follow up in 1 week for re Xray. Discharge Disposition: TRANSFER TO PSYCH HOSP/UNIT
[2017-10-28 15:28] VITALS: BP 122/66; PULSE 94; RESP 16; TEMP 98.3
[2017-10-28] MEDS ORDERED: traMADol 50 MG TAB PO SCH (16:00)
[2017-10-28] MEDS ORDERED: ACETAMINOPHEN TAB 325 MG TAB PO SCH (16:00)
[2017-10-28] MEDS: SODIUM CHLORIDE 0.9% 1,000 ML IV SCH (17:23)
--- NOTE | 2017-10-28 17:58 | P.PN ---
Progress Note - Text Progress Note Date: 10/28/17 Interval history: Patient is seen again in cross coverage today. She reports that she is feeling depressed today. She describes that someone from [facility] came to talk to her today. She has decided to be admitted to the mental health unit is recommended. She did start the Lamictal last night and seems to be tolerating that fine. Mental status exam: She is alert and cooperative with the interview. Her mood is depressed. She denies any thoughts of suicide. She does not show any evidence of psychosis or agitation. Thought processes are organized. Plan: Patient will be admitted to the inpatient mental health unit to help stabilize. Continue to monitor regarding any thoughts of suicide and monitor her mood. Maintain Lamictal as current.
== END 2017-10-28 18:08 | disposition still patient (30) | DRG 918 ==
LOC: EC 20:52 → 6SEL 23:51 → OBSVTOIN 10-27 11:16
PROVIDERS: ADMIT Internal Medicine; ATTEND Internal Medicine
DX: T40.602A Poisoning by unspecified narcotics, intentional self-harm, initial encounter (principal); S42.212A Unspecified displaced fracture of surgical neck of left humerus, initial encounter for closed fracture; F11.23 Opioid dependence with withdrawal; R74.0 Nonspecific elevation of levels of transaminase and lactic acid dehydrogenase [LDH]; F17.200 Nicotine dependence, unspecified, uncomplicated; B19.20 Unspecified viral hepatitis C without hepatic coma; F31.9 Bipolar disorder, unspecified; F90.9 Attention-deficit hyperactivity disorder, unspecified type; F13.10 Sedative, hypnotic or anxiolytic abuse, uncomplicated; F41.9 Anxiety disorder, unspecified; W19.XXXA Unspecified fall, initial encounter; Z71.6 Tobacco abuse counseling; Z80.1 Family history of malignant neoplasm of trachea, bronchus and lung; Z79.899 Other long term (current) drug therapy
CPT/HCPCS: 36415; 70450; 72125; 80048; 80053; 80306; 80320; 81003; 81025; 82550; 83520; 83605; 83690; 83735; 84100; 84450; 84460; 85025; 85027; 85610; 93005; 96361; 96374; 96375; 96376; 99285

== ENCOUNTER 2017-10-28 17:37 | Inpatient (IN) | payer MEDICAID, OTHER ==
[2017-10-28] MEDS ORDERED: MAG HYDROX/AL HYDROX/SIMETH 30 ML CUP PO PRN (17:38)
[2017-10-28] MEDS ORDERED: MAGNESIUM HYDROXIDE 2,400 MG/10 ML CUP PO PRN (17:38)
[2017-10-28] MEDS: ACETAMINOPHEN TAB 325 MG TAB PO PRN (20:22)
[2017-10-28] MEDS: lamoTRIgine 25 MG TAB PO SCH (20:22)
[2017-10-28] MEDS: traMADol 50 MG TAB PO PRN (20:23)
[2017-10-28 21:06] VITALS: RESP 16; BMI 32.9
[2017-10-28] MEDS ORDERED: NICOTINE 14MG/24HR PATCH TRANSDERM ONE (22:07)
[2017-10-28] MEDS: NICOTINE 14MG/24HR PATCH TRANSDERM SCH (22:08)
[2017-10-29] MEDS: ACETAMINOPHEN TAB 325 MG TAB PO PRN ×5 (01:27→23:24)
[2017-10-29 03:20] LABS: Cholesterol 137 mg/dL (<200); HDL Cholesterol 39 mg/dL (40-60); LDL Cholesterol,Calculated 78 mg/dL (0-99); Triglycerides 98 mg/dL (<150)
[2017-10-29] MEDS: traMADol 50 MG TAB PO PRN (05:16)
[2017-10-29] MEDS: PANTOPRAZOLE 40 MG TABLET PO SCH (08:20)
[2017-10-29] MEDS: NICOTINE 14MG/24HR PATCH TRANSDERM SCH (08:20)
[2017-10-29] MEDS: METHADONE 5 MG TAB PO SCH (10:35)
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
[2017-10-29] MEDS: busPIRone HCl 10 MG TAB PO SCH ×2 (16:10→20:16)
[2017-10-29] MEDS: lamoTRIgine 25 MG TAB PO SCH (20:16)
[2017-10-29] MEDS ORDERED: traZODone HCL 50 MG TAB PO SCH (21:00)
[2017-10-30 04:42] VITALS: BP 135/79; PULSE 88
[2017-10-30] MEDS: ACETAMINOPHEN TAB 325 MG TAB PO PRN ×2 (04:43→11:30)
[2017-10-30 04:47] VITALS: TEMP 99
[2017-10-30] MEDS: NICOTINE 14MG/24HR PATCH TRANSDERM SCH (08:21)
[2017-10-30] MEDS: METHADONE 5 MG TAB PO SCH (08:21)
[2017-10-30] MEDS: busPIRone HCl 10 MG TAB PO SCH (08:22)
[2017-10-30] MEDS: PANTOPRAZOLE 40 MG TABLET PO SCH (08:22)
--- NOTE | 2017-10-30 10:32 | P.DS ---
Providers Date of admission: 10/28/17 18:13 Expected date of discharge: 10/30/17 Attending physician: Haritha Lynch MD Consults: 10/28/17 17:38 Consult Physician Routine Consulting Provider: Misha Mann Consult Reason/Comments: Follow Up H & P Do you want consulting provider notified?: Yes Primary care physician: Stated None Hospital Course: Discharge Diagnosis: Substance-induced mood disorder, opioid use disorder on maintenance therapy, benzodiazepine use disorder, anxiety disorder, unspecified Reason for Admission: Patient is a 27-year-old female who was transferred from the inpatient unit where she had been admitted for an accidental overdose with benzodiazepines and is also on maintenance methadone treatment. Patient states that she was at a friend's house and he offered her Klonopin 1 mg tablets and she recalls taking 2 of them. She states that she took them because she was having a panic attack and states that she doesn't recall anything after that. The patient was at this friend's house with her 7-month-old daughter and apparently fell and fractured her arm as well. She doesn't recall any of this and that it was not a suicide attempt. She states now child protective services is involved and her daughter is living with her father and she has supervised visitation. She states that she has been on methadone 95 mg from [facility] for treatment of her IV heroin use. Patient states that she was begun on methadone in October 2016 when she was with her daughter and using IV heroin. She went to [facility] and was begun on methadone. Patient states that she was also recently at [facility] in August from the of the for use of benzodiazepines and at that time the patient was begun on BuSpar and trazodone. She states that was her third admission to [facility] she had been there in 2014 for heroin abuse but had left after 3 days. Patient states that she has been using heroin IV since 2014 and prior to that she had been using opiates either prescribed or purchased off the street since the age of 14. Patient states that she is also been prescribed benzodiazepines in the past for her anxiety and had begun using Klonopin and Xanax from the street after her . Patient reports that she was prescribed Adderall and Klonopin for years ago from a clinic. She states that she has not been seen by a psychiatrist since her release from [facility] but has been receiving her medications from her primary care physician. Patient states that she is to attend counseling meetings twice a month and 1 group meeting a month at [facility] and continues in their methadone clinic. Patient states that she has anxiety which she describes as having chest pain, shaking, difficulty breathing feeling angry and irritable and avoiding large groups and states that she also has social anxiety feeling that she is being judged or criticized by others. She states that she was given BuSpar 10 mg 3 times a day at [facility] and does feel that this had been beneficial to her. She is unable to tell me what precipitated her anxiety at her friend's house the other day that she took Klonopin 2 mg. Patient states that she always has panic attacks. Patient states that she is also been diagnosed as a bipolar patient and has been treated with Lamictal in the past with good results. Patient describes episodes of depression with some periods of time where she states that she is feeling happy for at least an hour to several days. Patient states that she has never attempted suicide. Patient states that when she is feeling happy her speech is increased and she has more energy but she continues to sleep 5 hours a day. When she is depressed she is feeling unmotivated, tired with no energy. She states that then she is isolative and would rather stay alone. Patient does not endorse any history of auditory or visual hallucinations or other psychotic symptoms. She reports that she has never had a suicide attempt in the past and has never been admitted to an inpatient psychiatric unit before. Mental status on Admission: Appearance/Attitude: Patient is appropriately dressed, makes good eye contact and is to be using a sling on her left arm and is cooperative Behavior: Patient does not exhibit any psychomotor agitation or retardation. Speech/Language: Patient's speech is spontaneous and normal volume and rhythm and she is coherent. Thought Process: Patient is goal-directed there is no evidence of loose association or flight of ideas. Thought Content: Patient denies any auditory or visual hallucinations, no paranoid or delusional ideation was elicited. Patient states that she has no recollection of what occurred after she thought she took 21 mg Klonopin because she was having a panic attack when she was at a friend's house. Patient states that she has been taking methadone 95 mg since October 2016. Patient is upset now that she has lost custody of her daughter because child protective services is involved. She also fractured her left humerus and states she is unaware of when she fell. Patient states that she has been feeling anxious and depressed recently but is unable to state why. Suicidal/Homicidal Ideation: Patient denies any current suicidal or homicidal ideation and states that this was not a suicide attempt she has no prior history of suicide attempts. Sensorium/Cognition: Patient is alert and oriented to person, place, and time and her recent and remote memory are grossly intact Mood/Affect: Patient's mood is slightly anxious and her affect is appropriate to her mood Insight/Judgment: Patient's insight and judgment are fair Hospital Course: Patient was admitted on a voluntary basis as a transfer from the medical floor, she was placed on routine observation in group and activity therapy were ordered. Patient also had a lipid panel done and a medical consultation. Patient was continued on Lamictal 25 mg at bedtime and restarted on trazodone 50 mg at bedtime and BuSpar 10 mg 3 times a day as the patient reported that she had been on these medications in the past with good results in stabilizing her mood as well as controlling her anxiety. Patient reported that she was not having any suicidal ideation and in fact this was not a suicide attempt but the use of Klonopin combined with her methadone. Patient had been abusing benzodiazepines for the last 3 years and had recently gone to [facility] in August of this year for treatment of that. Patient was aware that child protective services is now involved and she is only able to visit her 7-month-old daughter with supervision. Patient was also continued on her methadone 95 mg a day which was confirmed by the [facility] methadone clinic. Patient reported no suicidal ideation, stated that she was feeling stable on her medications, she reported her anxiety was better controlled with the BuSpar being restarted and she stated that she was sleeping and eating well. Patient had no evidence of any psychotic symptoms. Patient felt she was ready for discharge. Patient continued to have a sling on her left arm due to the fracture of her humerus. Patient is to follow up with the orthopedic surgeon 1 week after discharge. Allergies No Known Allergies Allergy (Verified 10/28/17 20:32) Laboratory Last Values Estimated Ave Glu mg/dL 97 10/28/17 07:44 Hemoglobin A1c 5.0 % (4.0-6.0) 10/28/17 07:44 Triglycerides 98 mg/dL (<150) 10/28/17 07:44 Cholesterol 137 mg/dL (<200) 10/28/17 07:44 LDL Cholesterol, Calc 78 mg/dL (0-99) 10/28/17 07:44 HDL Cholesterol 39 mg/dL (40-60) L 10/28/17 07:44 Discharge Mental Status: Appearance/Attitude: Patient is casually dressed, her left arm is in a sling and she makes good eye contact and is cooperative. Behavior: Patient does not exhibit any psychomotor agitation or retardation. Speech/Language: Patient's speech is spontaneous of normal volume and rhythm and she is coherent Thought Process: Patient is goal-directed there is no evidence of loose associations or flight of ideas. Thought Content: Patient denies any auditory or visual hallucinations and no delusions or paranoid ideation or elicited. Patient states that she is sleeping and eating well and states that her anxiety is better controlled with the restart of the BuSpar. Patient states that she is feeling more stable, discussed her bad judgment in using Klonopin. Suicidal/Homicidal Ideation: Patient denied any current suicidal or homicidal ideation Sensorium/Cognition: Patient is alert and oriented to person, place, and time and her recent and remote memory are grossly intact Mood/Affect: Patient's mood is euthymic and her affect is appropriate Insight/Judgment: Patient's insight and judgment are fair Risk Assessment: Patient's risk for self harm is low Discharge Plan: Patient will be discharged and will be living with her mother. Patient will continue on BuSpar 10 mg 3 times a day, trazodone 50 mg at bedtime and Lamictal 25 mg at bedtime until November 10 when she will increase it to 50 mg at bedtime for 2 weeks. Patient will be given prescriptions for these 3 medications. Patient will continue at [facility] methadone clinic and will be given a note stating that she received methadone while she was in the hospital and the dates of her time in hospital. Patient is to follow up with the orthopedic surgeon, in one week. Patient will continue to wear a sling on her left arm. Patient Condition at Discharge: Stable Plan - Discharge Summary Discharge Rx Participant: No New Discharge Prescriptions: New lamoTRIgine [LaMICtal] 25 mg PO HS #40 tab Nicotine 14Mg/24Hr Patch [Habitrol] 1 patch TRANSDERM DAILY #28 patch traZODone HCL [Desyrel] 50 mg PO HS #14 tab Continue Methadone [Dolophine] 95 mg PO DAILY Acetaminophen Tab [Tylenol] 325 mg PO Q8HR #90 tab busPIRone HCl [Buspar] 10 mg PO TID #42 tab Pantoprazole [Protonix] 40 mg PO AC-BRKFST #28 tablet. Discontinued traZODone HCL 50 mg PO HS lamoTRIgine [LaMICtal] 25 mg PO HS #30 tab Nicotine 21Mg/24Hr Patch [Habitrol] See Taper TRANSDERM DAILY 7 Days #7 patch MDD one patch traMADol HCl [Ultram] 50 mg PO Q8H PRN #9 tab PRN Reason: Pain Discharge Medication List Methadone [Dolophine] 95 mg PO DAILY 02/21/17 [History] Acetaminophen Tab [Tylenol] 325 mg PO Q8HR #90 tab 10/28/17 [Rx] Nicotine 14Mg/24Hr Patch [Habitrol] 1 patch TRANSDERM DAILY #28 patch 10/30/17 [ Rx] Pantoprazole [Protonix] 40 mg PO AC-BRKFST #28 tablet. 10/30/17 [Rx] busPIRone HCl [Buspar] 10 mg PO TID #42 tab 10/30/17 [Rx] lamoTRIgine [LaMICtal] 25 mg PO HS #40 tab 10/30/17 [Rx] traZODone HCL [Desyrel] 50 mg PO HS #14 tab 10/30/17 [Rx] Discharge Disposition: HOME SELF-CARE
== END 2017-10-30 12:14 | disposition home or self-care (01) | DRG 897 ==
LOC: 3MHU 18:13
PROVIDERS: ADMIT Psychiatry & Neurology Psychiatry; ATTEND Psychiatry & Neurology Psychiatry
DX: F11.14 Opioid abuse with opioid-induced mood disorder (principal); T42.4X1A Poisoning by benzodiazepines, accidental (unintentional), initial encounter; F41.0 Panic disorder [episodic paroxysmal anxiety]; F31.9 Bipolar disorder, unspecified; Z62.810 Personal history of physical and sexual abuse in childhood; F19.94 Other psychoactive substance use, unspecified with psychoactive substance-induced mood disorder; F13.14 Sedative, hypnotic or anxiolytic abuse with sedative, hypnotic or anxiolytic-induced mood disorder; Z79.899 Other long term (current) drug therapy
CPT/HCPCS: 80061; 83036

== ENCOUNTER → 2018-06-13 | Outpatient (CLI) | payer OTHER ==
--- NOTE | 2018-06-13 10:30 | US ---
EXAMINATION TYPE: US liver DATE OF EXAM: 06/13/2018 COMPARISON: NONE CLINICAL HISTORY: B18.2 Chronic viral hepatitis C. EXAM MEASUREMENTS: Liver Length: 17.0 cm Gallbladder Wall: 0.2 cm CBD: 0.1 cm Right Kidney: 12.1 x 4.4 x 5.0 cm Pancreas: Tail obscured by overlying bowel gas Liver: echogenic area seen left lobe, measuring 1.5 x 1.0 x 1.4cm, mildly heterogeneous, 17.0cm, upp er limits of normal in size Gallbladder: wnl Evidence for sonographic Delcid's sign: no CBD: wnl Right Kidney: Inferior pole obscured by overlying bowel gas, otherwise wnl IMPRESSION: Consider CT of the abdomen for further evaluation of the liver. Probable underlying hepat ic steatosis.
== END ==
LOC: RADUSWWP 09:40
PROVIDERS: ATTEND Internal Medicine Gastroenterology
DX: B18.2 Chronic viral hepatitis C (principal)
CPT/HCPCS: 76705

== ENCOUNTER → 2019-01-24 | Outpatient (CLI) | payer OTHER | END | disposition home or self-care (01) | LOC: LABWHC1 08:34 | PROVIDERS: ATTEND Psychologist Clinical | DX: F11.20 Opioid dependence, uncomplicated (principal) | CPT/HCPCS: 36415 ==

== ENCOUNTER → 2019-12-04 | Outpatient (CLI) | payer OTHER ==
[2019-12-04 10:56] LABS: Basophils % (A) 0 %; Eosinophils # (A) 0.2 k/uL (0-0.7); Eosinophils % (A) 3 %; HCT 40.7 % (34.0-46.0); HGB 13.5 gm/dL (11.4-16.0); Lymphocytes # (A) 3.7 k/uL (1.0-4.8); Lymphocytes % (A) 42 %; MCH 29.8 pg (25.0-35.0); MCHC 33.1 g/dL (31.0-37.0); Mean Platelet Volume 7.2; Monocytes # (A) 0.4 k/uL (0-1.0); Monocytes % (A) 4 %; Neutrophils # (A) 4.3 k/uL (1.3-7.7); Neutrophils % (A) 49 %; Platelet Count 232 k/uL (150-450); RBC 4.52 m/uL (3.80-5.40); RDW 12.8 % (11.5-15.5); WBC 8.8 k/uL (3.8-10.6)
[2019-12-04 19:28] LABS: ALT 93 U/L (8-44); AST 71 U/L (13-35); Albumin/Globulin Ratio 1.68 (1.60-3.17); Alkaline Phosphatase 72 U/L (41-126); Bilirubin, Conjugated <0.20 mg/dL (0.20-0.40); Globulin 2.5 g/dL (1.6-3.3); Total Bilirubin 0.3 mg/dL (0.3-1.2); Total Protein 6.7 g/dL (6.2-8.2)
[2019-12-08 16:08] LABS: HCV Qualitative Result DETECTED (Not detected); HCV Quant Log 5.48 (<1.08)
== END | disposition home or self-care (01) ==
LOC: LABWHC1 09:50
PROVIDERS: ATTEND Physician Assistant
DX: B18.2 Chronic viral hepatitis C (principal)
CPT/HCPCS: 36415; 80076; 82105; 85025; 87522; 87902

== ENCOUNTER → 2019-12-08 | Outpatient (CLI) | payer OTHER ==
--- NOTE | 2019-12-08 12:43 | CT ---
EXAMINATION TYPE: CT abdomen wo/w con DATE OF EXAM: 12/08/2019 COMPARISON: Ultrasound 06/13/2018 INDICATION: Per patient follow up for Hepatitis C. DLP: 2035.6 mGycm, Automated exposure control for dose reduction was used. CONTRAST: 100 mL of Isovue 300. Study performed with Oral Contrast TECHNIQUE: Axial images were obtained from above the diaphragm to the pubic rami in the axial plane a t 5 mm thick sections. Reconstructed images are reviewed on the computer in the coronal plane. FINDINGS: Limited CT sections are obtained the lung bases. The lung bases are clear. CT ABDOMEN: Liver: There is some mild fatty infiltration liver. No discrete masses are identified. Monitoring can be performed as clinically indicated. Spleen: Normal Pancreas: Normal Adrenal glands: The adrenal glands are normal. Gallbladder: Normal Kidneys: No masses are evident. No hydronephrosis is present. No cysts are present. No renal stone s are identified. Delayed images were obtained through the kidneys which remain unremarkable. Aorta: Normal Inferior vena cava: Normal. CT UPPER PELVIS: Loops of bowel within the abdomen and pelvis are normal. There are loops of bowel which are incom pletely distended or lack oral contrast limiting their evaluation. Appendix: Normal as visualized. Urinary bladder: Normal. IMPRESSIONS: 1. Mild fatty infiltration liver. No suspicious masses. Monitoring can be performed as clinically in dicated.
== END | disposition home or self-care (01) ==
LOC: RADCTMAIN 08:49
PROVIDERS: ATTEND Internal Medicine Gastroenterology
DX: K76.0 Fatty (change of) liver, not elsewhere classified (principal)
CPT/HCPCS: 74170; Q9967

== ENCOUNTER 2020-03-28 17:40 | Emergency (ER) | payer OTHER ==
[2020-03-28 17:55] VITALS: BP 120/69; PULSE 100; RESP 18; TEMP 98.3
--- NOTE | 2020-03-28 18:32 | ED ---
ENT HPI - General Chief complaint: ENT Stated complaint: infection in mouth Time Seen by Provider: 03/28/20 17:58 Source: patient Mode of arrival: ambulatory Limitations: no limitations - History of Present Illness Initial comments: 29yo female presenting to the ER today for cc of white stuff on tongue. IVDU. Denies known history of HIV. Hx hepatitis B. States it is making throat sore. States she can scrape off lesions. Denies night sweats,weight loss or additional complaints. Patient appears well nontoxic. Patient gave verbal consent for HIV testing.Patient case discussed with Dr. Pedroza who is agreeable to discharge with oral susp of nystatin and pcp f/u. Patient discharged appearing well. - Related Data Home Medications Medication Instructions Recorded Confirmed Methadone [Dolophine] 95 mg PO DAILY 02/21/17 10/28/17 Previous Rx's Medication Instructions Recorded Acetaminophen Tab [Tylenol] 325 mg PO Q8HR #90 tab 10/28/17 Nicotine 14Mg/24Hr Patch [Habitrol] 1 patch TRANSDERM DAILY #28 patch 10/30/17 Pantoprazole [Protonix] 40 mg PO AC-BRKFST #28 tablet. 10/30/17 busPIRone HCl [Buspar] 10 mg PO TID #42 tab 10/30/17 lamoTRIgine [LaMICtal] 25 mg PO HS #40 tab 10/30/17 traZODone HCL [Desyrel] 50 mg PO HS #14 tab 10/30/17 Nystatin 100,000 Unit/ml Susp 5 ml PO QID 14 Days #300 ml 03/28/20 [Mycostatin Oral Susp] Allergies Allergy/AdvReac Type Severity Reaction Status Date / Time No Known Allergies Allergy Verified 03/28/20 17:52 Review of Systems ROS Statement: Those systems with pertinent positive or pertinent negative responses have been documented in the HPI. ROS Other: All systems not noted in ROS Statement are negative. Past Medical History Past Medical History: No Reported History Additional Past Medical History / Comment(s): ovarian cysts, endometriosis, iv drug use, prescription drug abuse, Hep C, HPV History of Any Multi-Drug Resistant Organisms: None Reported Past Surgical History: No Surgical Hx Reported Additional Past Surgical History / Comment(s): laparascopy for endometriosis, Past Psychological History: ADD/ADHD, Anxiety, Bipolar Smoking Status: Current every day smoker Past Alcohol Use History: Occasional Past Drug Use History: IV Drug Use, Prescription Drug Abuse - Past Family History Mother Additional Family Medical History / Comment(s): Stage IV lung cancer General Exam Limitations: no limitations Course Vital Signs 03/28/20 17:50 Temperature 98.3 F Pulse Rate 100 Respiratory 18 Rate Blood Pressure 120/69 O2 Sat by Pulse 98 Oximetry Disposition Clinical Impression: Oral thrush Disposition: HOME SELF-CARE Condition: Good Instructions (If sedation given, give patient instructions): Oral Candidiasis (ED) Additional Instructions: Please use medication as discussed. Please follow-up with family doctor in the next 2 days. Please return to emergency room if the symptoms increase or worsen or for any other concerns. Prescriptions: Nystatin 100,000 Unit/ml Susp [Mycostatin Oral Susp] 5 ml PO QID 14 Days #300 ml Is patient prescribed a controlled substance at d/c from ED?: No Referrals: Klaudia Aragon MD [Primary Care Provider] - 1-2 days Time of Disposition: 18:32
[2020-03-29 09:24] LABS: HIV 2 AB Non-Reactive (Non-Reactive); HIV AB P24 Non-Reactive (Non-Reactive); HIV P24 AG Non-Reactive (Non-Reactive)
== END 2020-03-28 18:41 | disposition home or self-care (01) ==
LOC: EC 17:40
DX: B37.0 Candidal stomatitis (principal); F17.200 Nicotine dependence, unspecified, uncomplicated; Z79.899 Other long term (current) drug therapy; Z86.19 Personal history of other infectious and parasitic diseases
CPT/HCPCS: 36415; 87390; 99283

== ENCOUNTER 2022-04-15 20:00 | Emergency (ER) | payer OTHER ==
[2022-04-15 20:07] VITALS: BP 181/90; PULSE 100; RESP 20; TEMP 98.2
[2022-04-15] MEDS ORDERED: HYDROcodone/APAP 5-325MG 1 EACH TAB PO STA (20:56)
[2022-04-15] MEDS ORDERED: LIDOCAINE 1% INJ 10MG/ML (30 ML VIAL-PF) SQ ONE (20:56)
[2022-04-15] MEDS ORDERED: SULFAMETHOX-TMP 800-160MG 1 EACH TAB PO STA (21:32)
--- NOTE | 2022-04-15 21:38 | ED ---
General Adult HPI - General Chief complaint: Skin/Abscess/Foreign Body Stated complaint: boil under lt arm Time Seen by Provider: 04/15/22 20:14 Source: patient, RN notes reviewed Mode of arrival: ambulatory Limitations: no limitations - History of Present Illness Initial comments: 31-year-old female presents to the emergency Department with complaints of left axillary abscess, onset 4 days prior to arrival. States redness and swelling have worsened since. Fluctuant area with no active drainage. Patient reports significant discomfort associated with abscess. Did not take anything for pain prior to arrival. No history of MRSA or prior abscesses. Denies fever, chills, fatigue, nausea, or vomiting. - Related Data Home Medications Medication Instructions Recorded Confirmed Methadone [Dolophine] 95 mg PO DAILY 02/21/17 10/28/17 Previous Rx's Medication Instructions Recorded Acetaminophen Tab [Tylenol] 325 mg PO Q8HR #90 tab 10/28/17 Nicotine 14Mg/24Hr Patch [Habitrol] 1 patch TRANSDERM DAILY #28 patch 10/30/17 Pantoprazole [Protonix] 40 mg PO AC-BRKFSIdalmis #28 tablet.dr 10/30/17 busPIRone HCl [Buspar] 10 mg PO TID #42 tab 10/30/17 lamoTRIgine [LaMICtal] 25 mg PO HS #40 tab 10/30/17 traZODone HCL [Desyrel] 50 mg PO HS #14 tab 10/30/17 Nystatin 100,000 Unit/ml Susp 5 ml PO QID 14 Days #300 ml 03/28/20 [Mycostatin Oral Susp] Sulfamethox-Tmp 800-160Mg [Bactrim 1 each PO Q12HR 5 Days #10 tab 04/15/22 Ds] Allergies Allergy/AdvReac Type Severity Reaction Status Date / Time No Known Allergies Allergy Verified 04/15/22 20:06 Review of Systems ROS Statement: Those systems with pertinent positive or pertinent negative responses have been documented in the HPI. ROS Other: All systems not noted in ROS Statement are negative. Past Medical History Past Medical History: No Reported History Additional Past Medical History / Comment(s): ovarian cysts, endometriosis, iv drug use, prescription drug abuse, Hep C, HPV History of Any Multi-Drug Resistant Organisms: None Reported Past Surgical History: No Surgical Hx Reported Additional Past Surgical History / Comment(s): laparascopy for endometriosis, Past Psychological History: ADD/ADHD, Anxiety, Bipolar Smoking Status: Current every day smoker Past Alcohol Use History: Occasional Past Drug Use History: IV Drug Use, Prescription Drug Abuse - Past Family History Mother Additional Family Medical History / Comment(s): Stage IV lung cancer General Exam Limitations: no limitations General appearance: alert, in distress (Well-developed, well-nourished female in moderate distress due to pain.) Respiratory exam: Present: normal lung sounds bilaterally. Absent: respiratory distress, wheezes, rales, rhonchi, stridor Cardiovascular Exam: Present: regular rate, normal rhythm, normal heart sounds. Absent: systolic murmur, diastolic murmur, rubs, gallop, clicks Neurological exam: Present: alert, oriented X3, CN II-XII intact, normal gait Psychiatric exam: Present: normal affect, normal mood Skin exam: Present: warm, dry, intact, normal color Expanded Type of lesion: Present: abscess (3 cm abscess left axilla. Fluctuant area with surrounding erythema. No active drainage.) Course Vital Signs 04/15/22 20:03 Temperature 98.2 F Pulse Rate 100 Respiratory 20 Rate Blood Pressure 181/90 O2 Sat by Pulse 100 Oximetry Procedures - Incision & Drainage Consent Obtained: verbal consent Indication: Fluctuant Abscess, left axilla Site: upper extremity (Left) Size (cm): 2 Anesthetic Used: lidocaine 1% Amount (mLs): 3 I&D Cleaning Method: Iodine Sterile Field Used?: Yes Scalpel Used: #11 Needle Aspiration Performed?: Yes Irrigation Performed?: Yes I&D Drainage Obtained: Pus, Blood Packing: Plain Culture Obtained?: No Patient Tolerated Procedure: well, no complications, other (Procedure explained and consent obtained. Site cleansed and anesthetized. Abscess incised with 11 blade. Significant amount of pus and bloody drainage. Abscess irrigated and packed. Dressing applied. Patient instructed on wound care and appropriate follow-up.) Medical Decision Making - Medical Decision Making 31-year-old female with a past medical history of IV drug abuse presents to the emergency department for evaluation of left axillary abscess. Upon exam, patient appears moderately uncomfortable but in no acute distress. Vital signs are stable. Incision and drainage of abscess was performed with significant amount of pus and bloody drainage. Given [place] for pain with some improvement. She is started on Bactrim and a prescription was sent to the pharmacy. She has instructed on wound care and encouraged to follow up with PCP for recheck in 48- 72 hours. Return parameters were discussed in detail. Patient verbalizes understanding and agrees with this plan. Attending: Dian. Disposition Clinical Impression: Axillary abscess Disposition: HOME SELF-CARE Condition: Stable Instructions (If sedation given, give patient instructions): Abscess Incision and Drainage (DC) Additional Instructions: Take antibiotic as directed. Apply warm compress to facilitate drainage. Keep area clean and dry. Change dressing twice daily. Remove packing in 48 hours. Gently cleanse with mild soap and water after packing is removed. May take Tylenol or Motrin if needed for discomfort. Follow-up with your PCP on Sunday for a recheck. Return to the emergency department if you develop a fever, worsening redness, or intolerable pain. Prescriptions: Sulfamethox-Tmp 800-160Mg [Bactrim Ds] 1 each PO Q12HR 5 Days #10 tab Is patient prescribed a controlled substance at d/c from ED?: No Referrals: Arik Bliss MD [Primary Care Provider] - 1-2 days Time of Disposition: 21:37
== END 2022-04-15 21:44 | disposition home or self-care (01) ==
LOC: EC 20:00
DX: L02.412 Cutaneous abscess of left axilla (principal); F90.9 Attention-deficit hyperactivity disorder, unspecified type; F17.200 Nicotine dependence, unspecified, uncomplicated
CPT/HCPCS: 99283; 10060; J2001

== ENCOUNTER 2023-05-24 18:55 | Emergency (ER) | payer OTHER ==
--- NOTE | 2023-05-24 19:05 | ED ---
General Adult HPI <Hakan Cook - Last Filed: 05/24/23 19:05> - General Source: RN notes reviewed, old records reviewed Limitations: no limitations - History of Present Illness -: days(s) Location: left, upper extremity Radiation: non-radiation Severity scale (1-10): 10 Quality: burning, stabbing, aching, sharp Consistency: constant Improves with: none Worsens with: cold therapy Associated Symptoms: denies other symptoms <Gavin Biggs - Last Filed: 05/30/23 22:38> - General Stated complaint: abscess left arm Time Seen by Provider: 05/24/23 19:05 - History of Present Illness Initial comments: 32-year-old IV drug user presenting with abscess to left arm. States this is on ongoing for the last 2 days. (Hakan Cook) This is a 32-year-old female to the ER for evaluation of left elbow pain with significant abscess noted. Patient presents today (Gavin Biggs) - Related Data Home Medications Medication Instructions Recorded Confirmed Methadone [Dolophine] 95 mg PO DAILY 02/21/17 10/28/17 Previous Rx's Medication Instructions Recorded Acetaminophen Tab [Tylenol] 325 mg PO Q8HR #90 tab 10/28/17 Nicotine 14Mg/24Hr Patch [Habitrol] 1 patch TRANSDERM DAILY #28 patch 10/30/17 Pantoprazole [Protonix] 40 mg PO AC-BRKFST #28 tablet. 10/30/17 busPIRone HCl [Buspar] 10 mg PO TID #42 tab 10/30/17 lamoTRIgine [LaMICtal] 25 mg PO HS #40 tab 10/30/17 traZODone HCL [Desyrel] 50 mg PO HS #14 tab 10/30/17 Nystatin 100,000 Unit/ml Susp 5 ml PO QID 14 Days #300 ml 03/28/20 [Mycostatin Oral Susp] Sulfamethox-Tmp 800-160Mg [Bactrim 1 each PO Q12HR 5 Days #10 tab 04/15/22 Ds] Cephalexin [Keflex] 500 mg PO Q6HR #40 cap 05/24/23 Sulfamethox-Tmp 800-160Mg [Bactrim 2 tab PO BID #40 tab 05/25/23 DS 800-160 mg] Allergies Allergy/AdvReac Type Severity Reaction Status Date / Time No Known Allergies Allergy Verified 04/15/22 20:06 Review of Systems ROS Other: All systems not noted in ROS Statement are negative. <TianadesiMar westHakan - Last Filed: 05/24/23 19:05> ROS Other: All systems not noted in ROS Statement are negative. <NilamcarlieGavin Ling - Last Filed: 05/30/23 22:38> ROS Statement: Those systems with pertinent positive or pertinent negative responses have been documented in the HPI. Past Medical History Past Medical History: No Reported History Additional Past Medical History / Comment(s): ovarian cysts, endometriosis, iv drug use, prescription drug abuse, Hep C, HPV History of Any Multi-Drug Resistant Organisms: None Reported Past Surgical History: No Surgical Hx Reported Additional Past Surgical History / Comment(s): laparascopy for endometriosis, Past Psychological History: ADD/ADHD, Anxiety, Bipolar Smoking Status: Current every day smoker Past Alcohol Use History: Occasional Past Drug Use History: IV Drug Use, Prescription Drug Abuse - Past Family History Mother Additional Family Medical History / Comment(s): Stage IV lung cancer <TianadesiHakan west - Last Filed: 05/24/23 19:05> General Exam General appearance: alert Neck exam: Present: normal inspection Extremities exam: Present: other (Abscess to left forearm) Neurological exam: Present: alert Skin exam: Present: warm <Hakan Cook - Last Filed: 05/24/23 19:05> General appearance: alert, in no apparent distress, anxious Head exam: Present: atraumatic, normocephalic, normal inspection Eye exam: Present: normal appearance, PERRL, EOMI. Absent: scleral icterus, conjunctival injection, periorbital swelling ENT exam: Present: normal exam, mucous membranes moist Neck exam: Present: normal inspection. Absent: tenderness, meningismus, lymphadenopathy Respiratory exam: Present: normal lung sounds bilaterally. Absent: respiratory distress, wheezes, rales, rhonchi, stridor Cardiovascular Exam: Present: normal rhythm, tachycardia, normal heart sounds. Absent: systolic murmur, diastolic murmur, rubs, gallop, clicks GI/Abdominal exam: Present: soft, normal bowel sounds. Absent: distended, tenderness, guarding, rebound, rigid Extremities exam: Present: normal inspection, full ROM, normal capillary refill. Absent: tenderness, pedal edema, joint swelling, calf tenderness Back exam: Present: normal inspection Neurological exam: Present: alert, oriented X3, CN II-XII intact Psychiatric exam: Present: normal affect, normal mood Skin exam: Present: warm, dry, intact, normal color. Absent: rash <Gavin Biggs - Last Filed: 05/30/23 22:38> Course <Gavin Biggs - Last Filed: 05/30/23 22:38> Vital Signs 05/24/23 05/25/23 19:04 00:26 Temperature 99.3 F 98.4 F Pulse Rate 116 H 97 Respiratory 20 18 Rate Blood Pressure 120/75 118/68 O2 Sat by Pulse 99 99 Oximetry - Reevaluation(s) Reevaluation #1: 05/25/23 00:05 Record is reviewed (Gavin Biggs) Reevaluation #2: 05/25/23 00:05 Symptoms are improved (Gavin Biggs) Reevaluation #3: 05/25/23 00:05 patient symptoms are improved (Gavin Biggs) Reevaluation #4: 05/25/23 00:05 Was pt. sent in by a medical professional or institution (RENÉE Kim, PROCEDURES ANALYST, urgent care, hospital, or custodial...) When possible be specific @ -no Did you speak to anyone other than the patient for history (EMS, parent, family, police, friend...)? What history was obtained from this source @ -no Did you review nursing and triage notes (agree or disagree)? Why? @ -agree Are old charts reviewed (outside hosp., previous admission, EMS record, old EKG, old radiological studies, urgent care reports/EKG's, custodial records)? Report findings @ -yes Differential Diagnosis (chest pain, altered mental status, abdominal pain women, abdominal pain men, vaginal bleeding, weakness, fever, dyspnea, syncope, headache, dizziness, GI bleed, back pain, seizure, CVA, palpatations, mental health, musculoskeletal)? @ -prior EKG interpreted by me (3pts min.). @ -yes X-rays interpreted by me (1pt min.). @ -yes negative for acute disease CT interpreted by me (1pt min.). @ -no U/S interpreted by me (1pt. min.). @ -no What testing was considered but not performed or refused? (CT, X-rays, U/S, labs)? Why? @ -none What meds were considered but not given or refused? Why? @ -none Did you discuss the management of the patient with other professionals (professionals i.e. , PA, PROCEDURES ANALYST, lab, RT, psych nurse, social science research assistant, registered occupational therapist, teacher, patient transport officer, rn case management)? Give summary @ -no Was smoking cessation discussed for >3mins.? @ -no Was critical care preformed (if so, how long)? @ -no Were there social determinants of health that impacted care today? How? (Homelessness, low income, unemployed, alcoholism, drug addiction, transportation, low edu. Level, literacy, decrease access to med. care, care home, rehab)? @ -none Was there de-escalation of care discussed even if they declined (Discuss DNR or withdrawal of care, Hospice)? DNR status @ -no What co-morbidities impacted this encounter? (DM, HTN, Smoking, COPD, CAD, Cancer, CVA, ARF, Chemo, Hep., AIDS, mental health diagnosis, sleep apnea, morbid obesity)? @ -none Was patient admitted / discharged? Hospital course, mention meds given and route, prescriptions, significant lab abnormalities, going to OR and other pertinent info. @ - 32 to the ER today for evaluation, patient presents today for evaluation of left arm abscess history of IV drug abuse and recent IV injection and that upper arm. Patient does suffer from hepatitis C, patient is unable to arm to have any significant drainage or she has tried has this is not her first abscess. Patient's abscesses incised and drained here in the ER patient can be discharged home discharged Undiagnosed new problem with uncertain prognosis? @ -no Drug Therapy requiring intensive monitoring for toxicity (Heparin, Nitro, Insulin, Cardizem)? @ -no Were any procedures done? @ -no Diagnosis/symptom? @ -Forearm abscess Acute, or Chronic, or Acute on Chronic? @ -Acute Uncomplicated (without systemic symptoms) or Complicated (systemic symptoms)? @ -Complicated Side effects of treatment? @ -no Exacerbation, Progression, or Severe Exacerbation? @ -exacerbation Poses a threat to life or bodily function? How? (Chest pain, [place], [place], pneumonia, PE, COPD, DKA, ARF, appy, cholecystitis, CVA, Diverticulitis, Homicidal, Suicidal, threat to staff... and all critical care pts) @ -yes significant abscess and infection (Gavin Biggs) EKG Findings - EKG Comments: EKG Findings:: She is sinus tachycardia 109 [place] 161 QRS 80 QTC 393 - EKG Results: EKG: interpreted by ERMD <Gavin Biggs - Last Filed: 05/30/23 22:38> Procedures - Incision & Drainage Consent Obtained: verbal consent Site: upper extremity Anesthetic Used: lidocaine 1%, with epi I&D Cleaning Method: Betadine Sterile Field Used?: Yes Scalpel Used: #11 Ultrasound used: No Needle Aspiration Performed?: No Irrigation Performed?: Yes I&D Drainage Obtained: Pus Loculation Noted: probing needed to break Insertion of drain: Yes Culture Obtained?: No Complications: pain Patient Tolerated Procedure: well <Gavin Biggs - Last Filed: 05/30/23 22:38> Medical Decision Making <Hakan Cook - Last Filed: 05/24/23 19:05> - Radiology Data Radiology results: report reviewed (X-rays negative for acute disease), image reviewed <Gavin Biggs - Last Filed: 05/30/23 22:38> - Medical Decision Making Quicknote portion performed. Signed Hakan Cook PA-C (Hakan Cook) 32 to the ER today for evaluation, patient presents today for evaluation of left arm abscess history of IV drug abuse and recent IV injection and that upper arm. Patient does suffer from hepatitis C, patient is unable to arm to have any significant drainage or she has tried has this is not her first abscess. Patient's abscesses incised and drained here in the ER patient can be discharged home (Gavin Biggs) Disposition <Hakan Cook - Last Filed: 05/24/23 19:05> Is patient prescribed a controlled substance at d/c from ED?: No Time of Disposition: 00:05 <Gavin Biggs - Last Filed: 05/30/23 22:38> Clinical Impression: Abscess of left forearm, Left arm cellulitis Disposition: ADMITTED IP TO THIS HOSP Condition: Fair Prescriptions: Sulfamethox-Tmp 800-160Mg [Bactrim DS 800-160 mg] 2 tab PO BID #40 tab Cephalexin [Keflex] 500 mg PO Q6HR #40 cap Referrals: Arik Bliss MD [Primary Care Provider] - 1-2 days
--- NOTE | 2023-05-24 19:39 | XR ---
EXAMINATION: XR chest 2V: 05/24/2023 7:24 PM CLINICAL INDICATION: Chest Pain TECHNIQUE: Departmental protocol COMPARISON: None FINDINGS: The lungs are clear. The pleural spaces are negative. The cardiac silhouette is not enlarged. The remainder of the mediastinal silhouette is unremarkable. The skeletal structures and soft tissues are negative for acute findings. IMPRESSION: No acute radiographic process.
[2023-05-24] MEDS ORDERED: LIDOCAINE 1%-EPI 1:100,000 50 ML VIAL SQ STA (23:21)
[2023-05-24] MEDS ORDERED: HYDROmorphone 1 MG/ML 1 ML SYRINGE IM STA ×2 (23:26→23:30)
[2023-05-24] MEDS ORDERED: SULFAMETHOX-TMP 800-160MG 1 EACH TAB PO STA (23:54)
[2023-05-24] MEDS ORDERED: CEPHALEXIN 500 MG CAP PO STA (23:54)
[2023-05-24] MEDS ORDERED: SULFAMETH-TMP DS STARTER PACK 2 TAB BTL PO STA (23:58)
[2023-05-24] MEDS ORDERED: CEPHALEXIN 500MG STARTER PACK 4 CAP BTL PO STA (23:58)
[2023-05-25 00:56] VITALS: BP 118/68; PULSE 97; RESP 18; TEMP 98.4
== END 2023-05-25 00:27 | disposition other institution (70) ==
LOC: EC 18:55
DX: L02.414 Cutaneous abscess of left upper limb (principal); R00.0 Tachycardia, unspecified; F17.200 Nicotine dependence, unspecified, uncomplicated; Z86.59 Personal history of other mental and behavioral disorders
CPT/HCPCS: 93005; 71046; 99285; 96372 ×2; 10060; J1170 ×2

== ENCOUNTER 2023-07-07 16:30 | Emergency (ER) | payer OTHER ==
[2023-07-07] MEDS ORDERED: KETOROLAC 15 MG/ML 1 ML VIAL IVP STA (16:52)
[2023-07-07 17:35] LABS: Basophils # (A) 0.1 k/uL (0-0.2); Basophils % (A) 1 %; Eosinophils # (A) 0.1 k/uL (0-0.7); Eosinophils % (A) 1 %; HCT 37.7 % (34.0-46.0); HGB 12.9 gm/dL (11.4-16.0); Lymphocytes # (A) 3.1 k/uL (1.0-4.8); Lymphocytes % (A) 24 %; MCH 29.4 pg (25.0-35.0); MCHC 34.3 g/dL (31.0-37.0); MCV 85.8 fL (80.0-100.0); Mean Platelet Volume 7.1; Monocytes # (A) 0.5 k/uL (0-1.0); Monocytes % (A) 4 %; Neutrophils # (A) 8.7 k/uL (1.3-7.7); Neutrophils % (A) 68 %; Platelet Count 339 k/uL (150-450); RDW 12.6 % (11.5-15.5); WBC 12.8 k/uL (3.8-10.6)
[2023-07-07] MEDS ORDERED: HYDROmorphone 1 MG/ML 1 ML SYRINGE IVP STA (17:48)
[2023-07-07 17:51] LABS: ALT 55 U/L (4-34); African American GFR (CKD) >90 (>60 ml/min/1.73 sqM); Albumin 4.1 g/dL (3.5-5.0); Anion Gap 8 mmol/L; Blood Urea Nitrogen 13 mg/dL (7-17); Calcium 9.2 mg/dL (8.4-10.2); Carbon Dioxide 25 mmol/L (22-30); Chloride 103 mmol/L (98-107); Glucose 107 mg/dL (74-99); Non-African American GFR(CKD) >90 (>60 ml/min/1.73 sqM); Sodium 136 mmol/L (137-145); Total Bilirubin 0.6 mg/dL (0.2-1.3); Total Protein 7.7 g/dL (6.3-8.2)
[2023-07-07 17:53] LABS: AST 44 U/L (14-36); Alkaline Phosphatase 67 U/L (38-126); Potassium 4.4 mmol/L (3.5-5.1)
[2023-07-07] MEDS ORDERED: SODIUM CHLORIDE 0.9% 1,000 ML IV ONE (17:57)
--- NOTE | 2023-07-07 17:57 | ED ---
Skin/Abscess/FB HPI - General Chief complaint: Skin/Abscess/Foreign Body Stated complaint: Blood Clot in Arm Time Seen by Provider: 07/07/23 16:39 Source: patient Mode of arrival: ambulatory Limitations: no limitations - History of Present Illness Initial comments: 32-year-old female presenting with chief complaint of abscess to the right arm. 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 Patient just left AMA from [facility] after receiving IV antibiotics. 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 No fevers or chills. No chest pain or difficulty breathing. No numbness or tingling. - Related Data Previous Rx's Medication Instructions Recorded Cephalexin [Keflex] 500 mg PO Q6HR #40 cap 05/24/23 Sulfamethox-Tmp 800-160Mg [Bactrim 2 tab PO BID #40 tab 05/25/23 DS 800-160 mg] Cephalexin [Keflex] 500 mg PO Q6HR 10 Days #40 cap 07/07/23 Sulfamethox-Tmp 800-160Mg [Bactrim 1 tab PO Q12HR 10 Days #20 tab 07/07/23 DS 800-160 mg] Allergies Allergy/AdvReac Type Severity Reaction Status Date / Time No Known Allergies Allergy Verified 07/07/23 18:40 Review of Systems ROS Statement: Those systems with pertinent positive or pertinent negative responses have been documented in the HPI. ROS Other: All systems not noted in ROS Statement are negative. Past Medical History Past Medical History: No Reported History Additional Past Medical History / Comment(s): ovarian cysts, endometriosis, iv drug use, prescription drug abuse, Hep C, HPV History of Any Multi-Drug Resistant Organisms: None Reported Past Surgical History: No Surgical Hx Reported Additional Past Surgical History / Comment(s): laparascopy for endometriosis, Past Psychological History: ADD/ADHD, Anxiety, Bipolar Smoking Status: Current every day smoker Past Alcohol Use History: Occasional Past Drug Use History: IV Drug Use, Prescription Drug Abuse - Past Family History Mother Additional Family Medical History / Comment(s): Stage IV lung cancer General Exam Limitations: no limitations General appearance: alert, in no apparent distress Head exam: Present: atraumatic, normocephalic Eye exam: Present: normal appearance, EOMI Neck exam: Present: normal inspection Respiratory exam: Present: normal lung sounds bilaterally. Absent: respiratory distress, wheezes, rales, rhonchi, stridor Cardiovascular Exam: Present: regular rate, normal rhythm, normal heart sounds. Absent: systolic murmur, diastolic murmur, rubs, gallop, clicks Right Forearm Wrist exam: Present: full ROM, tenderness, swelling (Abscess over the AC), erythema Vascular: Present: radial pulse (2+). Absent: vascular compromise Neurological exam: Present: alert, oriented X3 Psychiatric exam: Present: normal affect, normal mood Expanded Type of lesion: Present: abscess (Right AC) Course Vital Signs 07/07/23 07/07/23 07/07/23 16:32 17:57 20:40 Temperature 98.7 F 98.6 F Pulse Rate 117 H 96 99 Respiratory 20 18 18 Rate Blood Pressure 128/78 132/70 123/69 O2 Sat by Pulse 100 100 100 Oximetry Medical Decision Making - Medical Decision Making Was pt. sent in by a medical professional or institution (, PA, COMPREHENSIVE ADVISOR, urgent care, hospital, or assisted...) When possible be specific @ -No Did you speak to anyone other than the patient for history (EMS, parent, family, police, friend...)? What history was obtained from this source @ -No Did you review nursing and triage notes (agree or disagree)? Why? @ -I reviewed and agree with nursing and triage notes Were old charts reviewed (outside hosp., previous admission, EMS record, old EKG, old radiological studies, urgent care reports/EKG's, assisted records)? Report findings @ -No old charts were reviewed Differential Diagnosis (chest pain, altered mental status, abdominal pain women, abdominal pain men, vaginal bleeding, weakness, fever, dyspnea, syncope, headache, dizziness, GI bleed, back pain, seizure, CVA, palpatations, mental health, musculoskeletal)? @ -Differential includes abscess, cellulitis, ALLERGIC reaction, this is not an all inclusive list EKG interpreted by me (3pts min.). @ -As above X-rays interpreted by me (1pt min.). @ -None done CT interpreted by me (1pt min.). @ -CT shows subcutaneous phlegmon with central abscess anterior right elbow U/S interpreted by me (1pt. min.). @ -None done What testing was considered but not performed or refused? (CT, X-rays, U/S, labs)? Why? @ -None What meds were considered but not given or refused? Why? @ -None Did you discuss the management of the patient with other professionals (professionals i.e. , PA, COMPREHENSIVE ADVISOR, lab, RT, psych nurse, social media sr strategy manager, educational resource coordinator, teacher, photographic intelligence officer, watch case polisher)? Give summary @ -No Was smoking cessation discussed for >3mins.? @ -No Was critical care preformed (if so, how long)? @ -No Were there social determinants of health that impacted care today? How? (Homelessness, low income, unemployed, alcoholism, drug addiction, t ransportation, low edu. Level, literacy, decrease access to med. care, intermediate, rehab)? @ -IVDA Was there de-escalation of care discussed even if they declined (Discuss DNR or withdrawal of care, Hospice)? DNR status @ -No What co-morbidities impacted this encounter? (DM, HTN, Smoking, COPD, CAD, Cancer, CVA, ARF, Chemo, Hep., AIDS, mental health diagnosis, sleep apnea, morbid obesity)? @ -None Was patient admitted / discharged? Hospital course, mention meds given and route, prescriptions, significant lab abnormalities, going to OR and other pertinent info. @ -32-year-old female presenting with chief complaint of forearm abscess. History of IVDA. History of recurrent abscesses due to IVDA. Patient just came from [facility] after signing out AMA, she received IV antibiotics. Attempted to obtain the records from [facility] secretary to the vice president staff was unable to do so. Lab work shows CBC 12.8. Mild transaminitis. CT shows subcutaneous phlegmon with central abscess of the anterior right elbow. I assisted my attending in viewing the abscess under ultrasound guidance, the abscess was then incised. Very little drainage was expressed, mostly blood with small amount of pus. Given that the patient is hemodynamically stable and the abscess is now in size, she will be discharged home on Bactrim and Keflex. Follow-up with PCP. Report back to ER with any new or worsening symptoms. Discussed return parameters and answered all questions. Patient conveyed verbal understanding and agreed to the plan. I discussed this case in detail with my attending Dr. Hudson Undiagnosed new problem with uncertain prognosis? @ -No Drug Therapy requiring intensive monitoring for toxicity (Heparin, Nitro, Insulin, Cardizem)? @ -No Were any procedures done? @ -No Diagnosis/symptom? @ -Abscess Acute, or Chronic, or Acute on Chronic? @ -Acute Uncomplicated (without systemic symptoms) or Complicated (systemic symptoms)? @ -Uncomplicated Side effects of treatment? @ -No Exacerbation, Progression, or Severe Exacerbation? @ -No Poses a threat to life or bodily function? How? (Chest pain, [place], [place], pneumonia, PE, COPD, DKA, ARF, appy, cholecystitis, CVA, Diverticulitis, Homicidal, Suicidal, threat to staff... and all critical care pts) @ -No - Lab Data Result diagrams: 07/07/23 17:09 07/07/23 17:09 Lab Results 07/07/23 07/07/23 07/07/23 Range/Units 17:09 17:09 17:09 WBC 12.8 H (3.8-10.6) k/uL RBC 4.40 (3.80-5.40) m/uL Hgb 12.9 (11.4-16.0) gm/dL Hct 37.7 (34.0-46.0) % MCV 85.8 (80.0-100.0) fL MCH 29.4 (25.0-35.0) pg MCHC 34.3 (31.0-37.0) g/dL RDW 12.6 (11.5-15.5) % Plt Count 339 (150-450) k/uL MPV 7.1 Neutrophils % 68 % Lymphocytes % 24 % Monocytes % 4 % Eosinophils % 1 % Basophils % 1 % Neutrophils # 8.7 H (1.3-7.7) k/uL Lymphocytes # 3.1 (1.0-4.8) k/uL Monocytes # 0.5 (0-1.0) k/uL Eosinophils # 0.1 (0-0.7) k/uL Basophils # 0.1 (0-0.2) k/uL Sodium 136 L (137-145) mmol/L Potassium 4.4 (3.5-5.1) mmol/L Chloride 103 (98-107) mmol/L Carbon Dioxide 25 (22-30) mmol/L Anion Gap 8 mmol/L BUN 13 (7-17) mg/dL Creatinine 0.47 L (0.52-1.04) mg/dL Est GFR (CKD-EPI)AfAm >90 (>60 ml/min/1.73 sqM) Est GFR (CKD-EPI)NonAf >90 (>60 ml/min/1.73 sqM) Glucose 107 H (74-99) mg/dL Plasma Lactic Acid Surinder 1.2 (0.7-2.0) mmol/L Calcium 9.2 (8.4-10.2) mg/dL Total Bilirubin 0.6 (0.2-1.3) mg/dL AST 44 H (14-36) U/L ALT 55 H (4-34) U/L Alkaline Phosphatase 67 (38-126) U/L Total Protein 7.7 (6.3-8.2) g/dL Albumin 4.1 (3.5-5.0) g/dL Disposition Clinical Impression: Abscess Disposition: HOME SELF-CARE Condition: Fair Instructions (If sedation given, give patient instructions): Abscess (ED), Polysubstance Abuse (ED) Additional Instructions: Follow-up with your PCP. Report back to ER with any new or worsening symptoms. Take medication as prescribed. Her abscess was caused by intravenous drug use, it is important to stop using IV drugs to prevent this or further complications from happening in the future. Prescriptions: Sulfamethox-Tmp 800-160Mg [Bactrim DS 800-160 mg] 1 tab PO Q12HR 10 Days #20 tab Cephalexin [Keflex] 500 mg PO Q6HR 10 Days #40 cap Is patient prescribed a controlled substance at d/c from ED?: No Referrals: Arik Bliss MD [Primary Care Provider] - 1-2 days Time of Disposition: 20:32
[2023-07-07 18:17] VITALS: RESP 18
--- NOTE | 2023-07-07 19:23 | CT ---
EXAMINATION TYPE: CT upper extremity RT w con DATE OF EXAM: 07/07/2023 COMPARISON: None HISTORY: right arm pain, warm to touch, IV user, and swelling at anterior elbow CT DLP: 387.8 mGycm Automated exposure control for dose reduction was used. CONTRAST: Performed with IV Contrast, patient injected with 100 mL of Isovue 300. Contrast enhanced CT of the r ight upper extremity extending from the right elbow through the right wrist. FINDINGS: At the level of the anterior elbow within the subcutaneous tissues is phlegmon with central abscess m easuring 2.9 x 2.4 x 1.8 cm. There is anterior skin thickening noted. No additional abscesses seen. T here is subcutaneous edema seen posterior medial soft tissues. No evidence for bony destructive proce ss. No evidence for osteomyelitis. No intramuscular abscess appreciated at this time. IMPRESSION: SUBCUTANEOUS PHLEGMON WITH CENTRAL ABSCESS ANTERIOR RIGHT ELBOW.
[2023-07-07 20:51] VITALS: BP 123/69; PULSE 99; TEMP 98.6
== END 2023-07-07 20:53 | disposition home or self-care (01) ==
LOC: EC 16:30
DX: L02.413 Cutaneous abscess of right upper limb (principal); F17.200 Nicotine dependence, unspecified, uncomplicated; Z86.59 Personal history of other mental and behavioral disorders
CPT/HCPCS: 99284 ×2; 96374 ×2; 96375 ×2; 96361 ×2; 36415; 80053; 83605; 85025; 73201; J1170; J1885; Q9967

== ENCOUNTER 2023-08-22 13:57 | Inpatient (IN) | payer OTHER ==
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
[2023-08-22] MEDS ORDERED: ONDANSETRON 4 MG/2 ML VIAL IVP PRN (17:05)
[2023-08-22] MEDS ORDERED: NALOXONE 0.4 MG/ML 1 ML VIAL IV PRN (17:05)
[2023-08-22] MEDS ORDERED: VANCOMYCIN IV PER PHARMACY 1 EACH MISC MISCELLANE PRN (17:06)
[2023-08-22] MEDS: KETOROLAC 15 MG/ML 1 ML VIAL IVP STA (17:52)
[2023-08-22] MEDS: PIPERACILLIN-TAZOBACTAM 3.375 GM in SODIUM CHLORIDE 0.9% 100 ML IVPB STA (17:52)
[2023-08-22] MEDS: SODIUM CHLORIDE 0.9% 1,000 ML IV STA (17:53)
[2023-08-22 17:55] LABS: HCT 35.9 % (34.0-46.0); HGB 12.3 gm/dL (11.4-16.0); MCH 29.5 pg (25.0-35.0); MCHC 34.3 g/dL (31.0-37.0); Mean Platelet Volume 7.1; Platelet Count 254 k/uL (150-450); RBC 4.17 m/uL (3.80-5.40); RDW 12.6 % (11.5-15.5); WBC 14.1 k/uL (3.8-10.6)
[2023-08-22 18:04] LABS: ALT 62 U/L (4-34); AST 44 U/L (14-36); African American GFR (CKD) >90 (>60 ml/min/1.73 sqM); Albumin 3.6 g/dL (3.5-5.0); Alkaline Phosphatase 107 U/L (38-126); Anion Gap 6 mmol/L; Blood Urea Nitrogen 9 mg/dL (7-17); Calcium 8.6 mg/dL (8.4-10.2); Carbon Dioxide 26 mmol/L (22-30); Chloride 104 mmol/L (98-107); Glucose 133 mg/dL (74-99); Non-African American GFR(CKD) >90 (>60 ml/min/1.73 sqM); Potassium 3.5 mmol/L (3.5-5.1); Sodium 136 mmol/L (137-145); Total Bilirubin 0.5 mg/dL (0.2-1.3); Total Protein 6.9 g/dL (6.3-8.2)
[2023-08-22] MEDS: VANCOMYCIN 1,250 MG in SODIUM CHLORIDE 0.9% 250 ML IVPB STA (18:34)
[2023-08-22 19:01] VITALS: RESP 20
[2023-08-22] MEDS: SODIUM CHLORIDE 0.9% 1,000 ML IV SCH (19:35)
[2023-08-22 20:13] LABS: Appearance,Urine Cloudy (Clear); Bilirubin,Urine Negative (Negative); Blood,Urine Negative (Negative); Color,Urine Yellow; Glucose,Urine (UA) Negative (Negative); Ketones,Urine Negative (Negative); Leukocyte Esterase,Urine Negative (Negative); Nitrite,Urine Negative (Negative); PH, Urine 5.5 (5.0-8.0); Protein,Urine Trace (Negative); RBC,Urine 1 /hpf (0-5); Specific Gravity,Urine 1.035 (1.001-1.035); Squamous Epithelial Cell,Urine 8 /hpf (0-4); Urobilinogen,Urine <2.0 mg/dL (<2.0); WBC,Urine 3 /hpf (0-5)
[2023-08-22 20:19] LABS: Cocaine Screen,Urine Detected (NotDetected)
[2023-08-22 20:20] LABS: Amphetamine Screen,Urine Detected (NotDetected); Barbiturate Screen,Urine Not Detected (NotDetected); Benzodiazepines Screen,Urine Not Detected (NotDetected); Methadone Screen, Urine Not Detected (NotDetected); Opiate Screen,Urine Not Detected (NotDetected); Oxycodone Screen, Urine Not Detected (NotDetected); Phencyclidine Screen,Urine Not Detected (NotDetected); Tricyclic Antidepressant,Urine Not Detected (NotDetected); Urn Cannabinoid Scrn Not Detected (NotDetected)
[2023-08-22] MEDS: KETOROLAC 15 MG/ML 1 ML VIAL IVP PRN (21:56)
[2023-08-23] MEDS: VANCOMYCIN 1,250 MG in SODIUM CHLORIDE 0.9% 250 ML IVPB SCH (04:22)
--- NOTE | 2023-08-23 08:11 | P.HPIM ---
Review of Systems This is a pleasant 32 years old female with past medical history of anxiety, bipolar, nicotine dependence. Also she has history of prescription drug abuse, hep C, HPV infection. She presents because of right leg pain and swelling and tenderness for a few days. She denies medical complaint, no chest pain or dyspnea. No change in urine or bowel habits. No headache dizziness weakness or numbness. She is a smoker also she smokes about 5 to 6 cigarettes/day and she was counseled to quit and she agrees to the nicotine patch. She denies using alcohol. Also she denies using drug for me although her urine drug screen was positive for cocaine, amphetamine, methamphetamine Patient denies depression currently no suicidal ideation She looks anxious and uncomfortable jittery asking for better pain control stating that the Toradol is not helping her and threatening to leave AMA. Patient afebrile, blood pressure 117/75, heart rate 88, She has leukocytosis 14.1, rest of CBC, BMP is unremarkable Liver enzymes mildly elevated. Urine test is negative Urine drug screen is positive for amphetamine methamphetamine and cocaine Ultrasound of the right leg showing no evidence of DVT but there is prominent right groin lymph node 2 x 2.1 x 1.1 cm also there is complex fluid collection above the right knee posteriorly 7.3 x 3.6 x 1.5 cm. Patient admitted and she got IV vancomycin and normal saline and 1 dose of Zosyn Past Medical History Past Medical History: No Reported History Additional Past Medical History / Comment(s): ovarian cysts, endometriosis, iv drug use, prescription drug abuse, Hep C, HPV History of Any Multi-Drug Resistant Organisms: None Reported Past Surgical History: No Surgical Hx Reported Additional Past Surgical History / Comment(s): laparascopy for endometriosis, Past Psychological History: ADD/ADHD, Anxiety, Bipolar Smoking Status: Current every day smoker Past Alcohol Use History: Occasional Additional Past Alcohol Use History / Comment(s): 1/2 PACK PER DAY Past Drug Use History: IV Drug Use, Prescription Drug Abuse Additional Drug Use History / Comment(s): . - Past Family History Mother Additional Family Medical History / Comment(s): Stage IV lung cancer Medications and Allergies Home Medications Medication Instructions Recorded Confirmed Type No Known Home Medications 08/22/23 08/22/23 History Allergies Allergy/AdvReac Type Severity Reaction Status Date / Time No Known Allergies Allergy Verified 08/22/23 17:26 Physical Exam Vitals: Vital Signs Temp Pulse Pulse Resp BP BP Pulse Ox 08/23/23 02:00 97.8 F 88 117/75 100 08/22/23 20:00 97.5 F L 102 H 114/76 100 08/22/23 18:50 98.1 F 104 H 20 131/54 100 08/22/23 14:03 98.1 F 95 18 165/104 100 Intake and Output 08/22/23 08/23/23 08/23/23 22:59 06:59 14:59 Other: # Voids 1 2 Weight 70.307 kg GENERAL: The patient is alert and oriented x3, not in any acute distress. Well developed, well nourished. HEENT: Pupils are round and equally reacting to light. EOMI. No scleral icterus. No conjunctival pallor. Normocephalic, atraumatic. No pharyngeal erythema. No thyromegaly. CARDIOVASCULAR: S1 and S2 present. No murmurs, rubs, or gallops. PULMONARY: Chest is clear to auscultation, no wheezing , no crackles. ABDOMEN: Soft, nontender, nondistended, normoactive bowel sounds. No palpable organomegaly. MUSCULOSKELETAL: No joint swelling or deformity. -EXTREMITIES: No cyanosis, clubbing, or pedal edema. Tender and raised area on the right side posteriorly above the knee about 7 cm in diameter NEUROLOGICAL: Gross neurological examination did not reveal any focal deficits. SKIN: No rashes. no petechiae. Results CBC & Chem 7: 08/22/23 17:40 08/22/23 17:40 Labs: Abnormal Lab Results - Last 24 Hours (Table) 08/22/23 08/22/23 08/22/23 Range/Units 17:40 17:40 19:37 WBC 14.1 H (3.8-10.6) k/uL Sodium 136 L (137-145) mmol/L Creatinine 0.43 L (0.52-1.04) mg/dL Glucose 133 H (74-99) mg/dL AST 44 H (14-36) U/L ALT 62 H (4-34) U/L Urine Appearance (Clear) Urine Protein (Negative) Ur Squamous Epith Cells (0-4) /hpf Ur Amphetamines Screen Detected H (NotDetected) U Methamphetamines Scrn Detected H (NotDetected) Urine Cocaine Screen Detected H (NotDetected) 08/22/23 Range/Units 19:37 WBC (3.8-10.6) k/uL Sodium (137-145) mmol/L Creatinine (0.52-1.04) mg/dL Glucose (74-99) mg/dL AST (14-36) U/L ALT (4-34) U/L Urine Appearance Cloudy H (Clear) Urine Protein Trace H (Negative) Ur Squamous Epith Cells 8 H (0-4) /hpf Ur Amphetamines Screen (NotDetected) U Methamphetamines Scrn (NotDetected) Urine Cocaine Screen (NotDetected) Thrombosis Risk Factor Assmnt - Choose All That Apply Any of the Below Risk Factors Present?: Yes Each Factor Represents 1 point: Swollen legs (current) Other Risk Factors: No Other congenital or acquired thrombophilia - If yes, enter type in comment: No Thrombosis Risk Factor Assessment Total Risk Factor Score: 1 Thrombosis Risk Factor Assessment Level: Low Risk Assessment and Plan Assessment: Right leg/thigh cellulitis and abscess posteriorly with groin lymphadenopathy Substance abuse with cocaine, amphetamine and methamphetamine was positive drug screen but patient declines Nicotine dependence Bipolar and other psych illnesses History of prescription drug abuse Plan: Continue with IV vancomycin Continue with normal saline Infectious disease consult Will also consult surgery team Consult psychiatry for her medication Continue with pain medication and add morphine as needed Add gabapentin for anxiety and for drinking Labs and medication were reviewed.. Continue same treatment. Continue with symptomatic treatment. Resume home medication. Monitor labs and vitals. DVT and GI prophylaxis. Further recommendations as per clinical course of the patient DVT prophylaxis: Subcutaneous heparin GI Prophylaxis: Pepcid PT/OT: Pending Prognosis is guarded Patient looks like he has capacity to make medical decision based on my evaluation. We have advised the patient to stay in the hospital and treated for an infection and abscess, risk including but not limited to bacteremia, septicemia, organ dysfunction or failure back pulmonary failure, heart failure, liver failure./Operative. Patient verbalized understanding and she agrees to stay in the hospital for now and continue treatment
[2023-08-23] MEDS: GABAPENTIN 400 MG CAP PO SCH (08:16)
[2023-08-23] MEDS: MORPHINE SULFATE 4 MG/ML SYRINGE IVP PRN (08:16)
[2023-08-23 09:04] VITALS: BP 132/48; PULSE 99; TEMP 98.4
[2023-08-23] MEDS ORDERED: GABAPENTIN 400 MG CAP PO SCH (16:00)
[2023-08-23] MEDS ORDERED: VANCOMYCIN TROUGH DUE 1 EACH MISC MISCELLANE ONE (19:00)
== END 2023-08-23 09:56 | disposition left against medical advice (07) | DRG 603 ==
LOC: EC 13:57 → 1SOBS 17:11
PROVIDERS: ADMIT Hospitalist; ATTEND Hospitalist
DX: L03.115 Cellulitis of right lower limb (principal); Z71.6 Tobacco abuse counseling; F17.210 Nicotine dependence, cigarettes, uncomplicated; F31.9 Bipolar disorder, unspecified; F41.9 Anxiety disorder, unspecified; F90.9 Attention-deficit hyperactivity disorder, unspecified type; L02.415 Cutaneous abscess of right lower limb; Z28.310 Unvaccinated for COVID-19; Z28.21 Immunization not carried out because of patient refusal; F14.10 Cocaine abuse, uncomplicated; F15.10 Other stimulant abuse, uncomplicated; F19.11 Other psychoactive substance abuse, in remission; Z86.19 Personal history of other infectious and parasitic diseases; N83.209 Unspecified ovarian cyst, unspecified side; R59.0 Localized enlarged lymph nodes; Z53.29 Procedure and treatment not carried out because of patient's decision for other reasons
CPT/HCPCS: 80053; 80306; 81001; 81025; 83605; 85027; 87040; 96365; 96367; 96375; 99285

== ENCOUNTER 2024-06-27 14:37 | Emergency (ER) | payer OTHER ==
--- NOTE | 2024-06-27 16:31 | ED ---
Psych HPI - General Source: patient, RN notes reviewed Mode of arrival: ambulatory - History of Present Illness MD Complaint: suicidal ideation Onset/Timin -: days(s) <Alan Vivas - Last Filed: 06/27/24 16:28> <Loy Basurto - Last Filed: 07/08/24 06:16> - General Chief Complaint: Psychiatric Symptoms Stated Complaint: Right arm rash with hizes, thoughts of suicide Time Seen by Provider: 06/27/24 14:52 - History of Present Illness Initial Comments: Quick note: This is a 33-year-old female presenting with suicidal ideation, hallucinations and insomnia x 4 days. Patient states she was discharged from prison on 06/23/2024 and has been off her medications since that time, exacerbating her symptoms. Patient states she has had thoughts of thinking the world is better off without her but has no definitive plan. Denies homicidal ideation states her mental status was better when she was taking her psych medication. States she was taking Cymbalta twice daily (6030), Minipress 2 mg and Catapres 1 mg. Also endorses several circles on medial aspect of her right forearm for the past 2 days with associated itching and burning. (Alan Vivas) - Related Data Previous Rx's Medication Instructions Recorded Sulfamethox-Tmp 800-160Mg [Bactrim 1 each PO Q12HR #6 tab 06/27/24 Ds] Allergies Allergy/AdvReac Type Severity Reaction Status Date / Time No Known Allergies Allergy Verified 06/27/24 14:47 Review of Systems ROS Other: All systems not noted in ROS Statement are negative. <Alan Vivas - Last Filed: 06/27/24 16:28> ROS Other: All systems not noted in ROS Statement are negative. <Loy Basurto - Last Filed: 07/08/24 06:16> ROS Statement: Those systems with pertinent positive or pertinent negative responses have been documented in the HPI. Past Medical History Past Medical History: No Reported History Additional Past Medical History / Comment(s): ovarian cysts, endometriosis, iv drug use, prescription drug abuse, Hep C, HPV History of Any Multi-Drug Resistant Organisms: None Reported Past Surgical History: No Surgical Hx Reported Additional Past Surgical History / Comment(s): laparascopy for endometriosis, Past Psychological History: ADD/ADHD, Anxiety, Bipolar Smoking Status: Current every day smoker Past Alcohol Use History: Occasional Past Drug Use History: Heroin, IV Drug Use, Methamphetamine, Opiates, Prescription Drug Abuse - Past Family History Mother Additional Family Medical History / Comment(s): Stage IV lung cancer <Alan Vivas - Last Filed: 06/27/24 16:28> General Exam Limitations: no limitations <Alan Vivas - Last Filed: 06/27/24 16:28> General appearance: alert, in no apparent distress Head exam: Present: atraumatic, normocephalic Eye exam: Present: normal appearance. Absent: scleral icterus, conjunctival injection Neck exam: Present: normal inspection Respiratory exam: Present: normal lung sounds bilaterally. Absent: respiratory distress, wheezes, rales, rhonchi, stridor, accessory muscle use Cardiovascular Exam: Present: regular rate, normal rhythm, normal heart sounds. Absent: systolic murmur, diastolic murmur, rubs, gallop GI/Abdominal exam: Present: soft. Absent: distended, tenderness, guarding, rebound Extremities exam: Present: normal inspection Back exam: Present: normal inspection Neurological exam: Present: alert Psychiatric exam: Present: anxious. Absent: agitated, manic, homicidal ideation, suicidal ideation Skin exam: Present: warm, dry, intact, normal color. Absent: rash <Loy Basurto - Last Filed: 07/08/24 06:16> - General Exam Comments Initial Comments: Visual Physical Exam Vital signs reviewed General: Well-appearing, nontoxic, no acute distress. Head: Normocephalic, atraumatic Eyes: PERRLA, EOMI ENT: Airway patent Chest: Nonlabored breathing Skin: No visual rash, normal skin tone Neuro: Alert and oriented 3 Musculoskeletal: No gross abnormalities (Alan Vivas) Course Vital Signs 06/27/24 06/27/24 14:48 23:01 Temperature 97.8 F 98.5 F Pulse Rate 89 88 Respiratory 20 18 Rate Blood Pressure 147/79 115/71 O2 Sat by Pulse 97 97 Oximetry Medical Decision Making <Alan Vivas - Last Filed: 06/27/24 16:28> <Loy Basurto - Last Filed: 07/08/24 06:16> - Medical Decision Making I completed the quick note portion of this chart signed RIVAS James (Alan Vivas) Was pt. sent in by a medical professional or institution (, [facility], [employer], urgent care, hospital, or senior living...) When possible be specific @ -[No] Did you speak to anyone other than the patient for history (EMS, parent, family, police, friend...)? What history was obtained from this source @ -[No] Did you review nursing and triage notes (agree or disagree)? Why? @ -[I reviewed and agree with nursing and triage notes] Were old charts reviewed (outside hosp., previous admission, EMS record, old EKG, old radiological studies, urgent care reports/EKG's, senior living records)? Report findings @ -[No old charts were reviewed] Differential Diagnosis (chest pain, altered mental status, abdominal pain women, abdominal pain men, vaginal bleeding, weakness, fever, dyspnea, syncope, headache, dizziness, GI bleed, back pain, seizure, CVA, palpatations, mental health, musculoskeletal)? @ -[Differential Mental Health Depression, anxiety, bipolar, psychosis, schizophrenia, borderline personality, situational depression, adjustment disorder, behavioral disorder, brain tumor, malingering, substance abuse, encephalopathy, medication reaction, dementia, hypothyroidism, degenerative neurologic disorder, lupus.... This is not meant to be all-inclusive list EKG interpreted by me (3pts min.). @ -[As above] X-rays interpreted by me (1pt min.). @ -[None done] CT interpreted by me (1pt min.). @ -[None done] U/S interpreted by me (1pt. min.). @ -[None done] What testing was considered but not performed or refused? (CT, X-rays, U/S, labs)? Why? @ -[None] What meds were considered but not given or refused? Why? @ -[None] Did you discuss the management of the patient with other professionals (professionals i.e. [facility] Kim, [employer], lab, RT, psych nurse, social work msw, supply chain systems manager, teacher, program officer, briefcase sewer)? Give summary @ -[No] Was smoking cessation discussed for >3mins.? @ -[No] Was critical care preformed (if so, how long)? @ -[No] Were there social determinants of health that impacted care today? How? (Homelessness, low income, unemployed, alcoholism, drug addiction, transportation, low edu. Level, literacy, decrease access to med. care, prison, rehab)? @ -[No] Was there de-escalation of care discussed even if they declined (Discuss DNR or withdrawal of care, Hospice)? DNR status @ -[No] What co-morbidities impacted this encounter? (DM, HTN, Smoking, COPD, CAD, Cancer, CVA, ARF, Chemo, Hep., AIDS, mental health diagnosis, sleep apnea, morbid obesity)? @ -[None] Was patient admitted / discharged? Hospital course, mention meds given and route, prescriptions, significant lab abnormalities, going to OR and other pertinent info. @ -[hospital course] Undiagnosed new problem with uncertain prognosis? @ -[No] Drug Therapy requiring intensive monitoring for toxicity (Heparin, Nitro, Insulin, Cardizem)? @ -[No] Were any procedures done? @ -[No] Diagnosis/symptom? @ -[Mood disorder Substance abuse Acute, or Chronic, or Acute on Chronic? @ -[Acute Uncomplicated (without systemic symptoms) or Complicated (systemic symptoms)? @ -[default] Side effects of treatment? @ -[No] Exacerbation, Progression, or Severe Exacerbation? @ -[No] Poses a threat to life or bodily function? How? (Chest pain, [place], [place], pneumonia, PE, COPD, DKA, ARF, appy, cholecystitis, CVA, Diverticulitis, Homicidal, Suicidal, threat to staff... and all critical care pts) @ -[No] All treatments are based on ideal body weight as in ED triage (Loy Basurto) - Lab Data Lab Results 06/27/24 Range/Units 17:37 Urine Opiates Screen Not Detected (NotDetected) Ur Oxycodone Screen Not Detected (NotDetected) Urine Methadone Screen Not Detected (NotDetected) Ur Barbiturates Screen Not Detected (NotDetected) U Tricyclic Antidepress Not Detected (NotDetected) Ur Phencyclidine Scrn Not Detected (NotDetected) Ur Amphetamines Screen Detected H (NotDetected) U Methamphetamines Scrn Detected H (NotDetected) U Benzodiazepines Scrn Not Detected (NotDetected) Urine Cocaine Screen Detected H (NotDetected) U Marijuana (THC) Screen Detected H (NotDetected) Disposition <Alan Vivas - Last Filed: 06/27/24 16:28> Is patient prescribed a controlled substance at d/c from ED?: No <Loy Basurto - Last Filed: 07/08/24 06:16> Clinical Impression: Anxiety, Substance abuse Disposition: HOME SELF-CARE Condition: Good Instructions (If sedation given, give patient instructions): Mood Disorders (ED) Prescriptions: Sulfamethox-Tmp 800-160Mg [Bactrim Ds] 1 each PO Q12HR #6 tab Referrals: None,Stated [Primary Care Provider] - 1-2 days
[2024-06-27 18:19] LABS: Amphetamine Screen,Urine Detected (NotDetected); Barbiturate Screen,Urine Not Detected (NotDetected); Benzodiazepines Screen,Urine Not Detected (NotDetected); Cocaine Screen,Urine Detected (NotDetected); Methadone Screen, Urine Not Detected (NotDetected); Opiate Screen,Urine Not Detected (NotDetected); Oxycodone Screen, Urine Not Detected (NotDetected); Phencyclidine Screen,Urine Not Detected (NotDetected); Tricyclic Antidepressant,Urine Not Detected (NotDetected); Urn Cannabinoid Scrn Detected (NotDetected)
[2024-06-27] MEDS: SULFAMETHOX-TMP 800-160MG 1 EACH TAB PO STA (21:32)
[2024-06-27 23:02] VITALS: BP 115/71; PULSE 88; RESP 18; TEMP 98.5
== END 2024-06-27 23:23 | disposition home or self-care (01) ==
LOC: EC 14:37
DX: F41.9 Anxiety disorder, unspecified (principal); F19.10 Other psychoactive substance abuse, uncomplicated; F17.200 Nicotine dependence, unspecified, uncomplicated
CPT/HCPCS: 80306; 82075; 99284